=== PATIENT | female | born 1945 | race Caucasian/White ===

== ENCOUNTER → 2017-09-10 | Outpatient (CLI) | payer MEDICARE, BC ==
[2017-09-10 12:05] LABS: HEMOGLOBIN 13.7 g/dl (12.0-15.5); MEAN CORPUSCULAR HEMOGLOBIN 29.5 pg (27.0-33.0); MEAN CORPUSCULAR HGB CONC 32.6 g/dl (32.0-36.5); MEAN CORPUSCULAR VOLUME 90.3 fl (80.0-96.0); PLATELET COUNT, AUTOMATED 227 10^3/uL (150-450); RED BLOOD COUNT 4.65 10^6/uL (4.00-5.40); RED CELL DISTRIBUTION WIDTH 14.1 % (11.5-14.5)
[2017-09-10 12:14] LABS: INR 0.96; PROTHROMBIN TIME 12.8 SECONDS (12.4-14.5)
[2017-09-10 12:15] LABS: APPEARANCE, URINE CLEAR (CLEAR); BACTERIA, URINE AUTO NEGATIVE (NEGATIVE); BILIRUBIN, URINE AUTO NEGATIVE (NEGATIVE); BLOOD, URINE BLOOD NEGATIVE (NEGATIVE); COLOR, URINE YELLOW (YELLOW); GLUCOSE, URINE (UA) AUTO NEGATIVE (NEGATIVE); KETONE, URINE AUTO NEGATIVE (NEGATIVE); LEUKOCYTE ESTERASE, URINE AUTO NEGATIVE (NEGATIVE); MUCUS, URINE SMALL (NEGATIVE); NITRITE, URINE AUTO NEGATIVE (NEGATIVE); PROTEIN, URINE AUTO NEGATIVE (NEGATIVE); RBC, URINE AUTO 2 /HPF (0-3); SPECIFIC GRAVITY URINE AUTO 1.017 (1.002-1.035); SQUAMOUS EPITHELIAL CELL UR AU 1 /HPF (0-6); UROBILINOGEN, URINE AUTO 0.2 mg/dL (0.0-2.0); WBC, URINE AUTO 2 /HPF (0-3)
[2017-09-10 13:01] LABS: ALBUMIN 3.7 GM/DL (3.2-5.2); ALBUMIN/GLOBULIN RATIO 1.06 (1.00-1.93); ALKALINE PHOSPHATASE 72 U/L (45-117); ALT/SGPT 24 U/L (12-78); ANION GAP 4 MEQ/L (8-16); AST/SGOT 21 U/L (7-37); BILIRUBIN,TOTAL 1.4 MG/DL (0.2-1.0); BLOOD UREA NITROGEN 11 MG/DL (7-18); CARBON DIOXIDE LEVEL 31 MEQ/L (21-32); CHLORIDE LEVEL 108 MEQ/L (98-107); CREATININE FOR GFR 0.77 MG/DL (0.55-1.30); GLOMERULAR FILTRATION RATE > 60.0 (>39); GLUCOSE, FASTING 95 MG/DL (70-100); POTASSIUM SERUM 4.8 MEQ/L (3.5-5.1); SODIUM LEVEL 143 MEQ/L (136-145); TOTAL PROTEIN 7.2 GM/DL (6.4-8.2)
[2017-09-10 13:58] LABS: ERYTHROCYTE SEDIMENTATION RATE 12 mm/hr (0-30)
== END ==
LOC: M ADMPAT 10:15
DX: Z01.818 Encounter for other preprocedural examination (principal); M17.12 Unilateral primary osteoarthritis, left knee
CPT/HCPCS: 71046

== ENCOUNTER 2017-09-26 09:26 | Inpatient (IN) | payer MEDICARE, BC ==
[2017-09-26] MEDS: LR 1,000 ML IV ×4 (09:45→16:49)
[2017-09-26] MEDS: ACETAMINOPHEN 500 MG TAB PO (10:00)
[2017-09-26] MEDS ORDERED: fentaNYL 100 MCG/2 ML INJECTION (J3010) As Ordered ×2 (10:13→10:34)
[2017-09-26] MEDS ORDERED: MIDAZOLAM INJ 2 MG/2 ML VIAL (J2250) As Ordered ×2 (10:13→10:34)
[2017-09-26] MEDS ORDERED: PROPOFOL 200 MG/20 ML VIAL As Ordered ×2 (10:35→10:36)
[2017-09-26] MEDS: fentaNYL 100 MCG/2 ML INJECTION (J3010) IV (10:51)
[2017-09-26] MEDS: MIDAZOLAM INJ 2 MG/2 ML VIAL (J2250) IV (10:51)
[2017-09-26] MEDS: ceFAZolin 1GM INJ (J0690 PER 500MG) As Ordered (11:53)
[2017-09-26] MEDS: BUPIVACAINE HCL 0.25% 10 ML VIAL As Ordered (12:29)
[2017-09-26] MEDS: TRANEXAMIC ACID 100 MG/ML 10ML VIAL As Ordered (12:31)
[2017-09-26] MEDS: EPINEPHrine INJ 1 MG/ML 1ML AMP As Ordered (12:33)
[2017-09-26] MEDS: BUPIVACAINE LIPOSOME/PF 1.3% 20 ML VIAL (13.3MG/ML)(EXPAREL) As Ordered (12:34)
[2017-09-26] MEDS ORDERED: NALOXONE INJ 0.4 MG/1 ML VIAL (J2310) IV (13:30)
[2017-09-26] MEDS ORDERED: EPIDURAL/PCA KEYS XX (13:30)
[2017-09-26] MEDS ORDERED: FLEET ENEMA PR (13:30)
[2017-09-26] MEDS ORDERED: ONDANSETRON 4MG/2ML VIAL (J2405) IV ×2 (13:30→13:45)
[2017-09-26] MEDS ORDERED: NALBUPHINE HCL 10 MG/ML AMP (J2300) IV (13:30)
[2017-09-26] MEDS ORDERED: MORPHINE 1MG/ML IN 0.9% NACL 100ML IV BAG IV (13:30)
[2017-09-26] MEDS ORDERED: MORPHINE 1MG/ML IN 0.9% NACL 100ML IV BAG As Ordered (13:31)
[2017-09-26] MEDS ORDERED: MORPHINE 10 MG/ML 1ML VIAL (J2270) IV (13:45)
[2017-09-26] MEDS ORDERED: fentaNYL 100 MCG/2 ML INJECTION (J3010) IV (13:45)
[2017-09-26] MEDS ORDERED: METOCLOPRAMIDE INJ 10MG/2ML VIAL (J2765) IV (13:45)
[2017-09-26] MEDS ORDERED: NORCO, ANEXSIA 5/325MG TABLET (HYDROcodone/ACETAMINOPHEN) PO (13:45)
[2017-09-26] MEDS ORDERED: ROPIvacaine 0.5% 30 ML INJECTION (J2795 PER 1MG) (13:47)
[2017-09-26] MEDS ORDERED: EPINEPHrine INJ 1 MG/ML 1ML AMP (13:47)
[2017-09-26] MEDS ORDERED: dexameTHASONE 10 MG/1 ML VIAL PRES.FREE (J1100) (13:47)
[2017-09-26] MEDS: WARFARIN SOD 5 MG TAB PO (16:48)
[2017-09-26] MEDS: VITAMIN D 1,000 INTERNATIONAL UNITS TABLET PO (16:48)
[2017-09-26] MEDS: OCUVITE 1 TAB PO (16:48)
[2017-09-26] MEDS: SENOKOT S TAB PO (20:56)
[2017-09-26] MEDS: PANTOPRAZOLE 40MG TAB (PROTONIX) PO (20:57)
[2017-09-26] MEDS: PROPRANOLOL 80 MG LA CAP PO (20:57)
[2017-09-26] MEDS: ESCITALOPRAM OXALATE 10 MG TAB (LEXAPRO) PO (20:57)
[2017-09-26] MEDS: CETIRIZINE (ZyrTEC) 10 MG TAB PO (20:57)
[2017-09-27] MEDS: LR 1,000 ML IV (00:30)
[2017-09-27] MEDS: diphenhydrAMINE INJ 50MG/ML VIAL (J1200) IV (03:18)
[2017-09-27 06:09] LABS: HEMATOCRIT 35.7 % (36.0-47.0); HEMOGLOBIN 11.8 g/dl (12.0-15.5); MEAN CORPUSCULAR HEMOGLOBIN 29.7 pg (27.0-33.0); MEAN CORPUSCULAR HGB CONC 33.1 g/dl (32.0-36.5); MEAN CORPUSCULAR VOLUME 89.9 fl (80.0-96.0); PLATELET COUNT, AUTOMATED 200 10^3/uL (150-450); RED BLOOD COUNT 3.97 10^6/uL (4.00-5.40); WHITE BLOOD COUNT 9.2 10^3/uL (4.0-10.0)
[2017-09-27 06:21] LABS: INR 1.06
[2017-09-27 06:28] LABS: ANION GAP 5 MEQ/L (8-16); BLOOD UREA NITROGEN 14 MG/DL (7-18); CALCIUM LEVEL 8.3 MG/DL (8.8-10.2); CARBON DIOXIDE LEVEL 30 MEQ/L (21-32); CHLORIDE LEVEL 105 MEQ/L (98-107); CREATININE FOR GFR 0.85 MG/DL (0.55-1.30); GLOMERULAR FILTRATION RATE > 60.0 (>39); GLUCOSE, FASTING 141 MG/DL (70-100); POTASSIUM SERUM 4.4 MEQ/L (3.5-5.1); SODIUM LEVEL 140 MEQ/L (136-145)
[2017-09-27] MEDS: MIRALAX *UNIT DOSE* 17GM PACKET PO (08:03)
[2017-09-27] MEDS: OCUVITE 1 TAB PO (08:03)
[2017-09-27] MEDS: MOM 30ML SUSPENSION UDC PO (08:03)
[2017-09-27] MEDS: VITAMIN D 1,000 INTERNATIONAL UNITS TABLET PO (08:03)
[2017-09-27] MEDS: SENOKOT S TAB PO ×2 (08:03→20:00)
[2017-09-27] MEDS: PERCOCET 5MG/325MG TAB PO ×4 (08:04→22:55)
[2017-09-27] MEDS: CALCIUM CARBONATE 500 MG CHEW U/D PO (09:20)
[2017-09-27] MEDS: WARFARIN SOD 5 MG TAB PO (17:58)
[2017-09-27] MEDS: diphenhydrAMINE 25 MG CAP PO (17:58)
[2017-09-27] MEDS: ESCITALOPRAM OXALATE 10 MG TAB (LEXAPRO) PO (20:00)
[2017-09-27] MEDS: CETIRIZINE (ZyrTEC) 10 MG TAB PO (20:00)
[2017-09-27] MEDS: PANTOPRAZOLE 40MG TAB (PROTONIX) PO (20:00)
[2017-09-27] MEDS: PROPRANOLOL 80 MG LA CAP PO (20:03)
[2017-09-28 06:12] LABS: HEMATOCRIT 33.4 % (36.0-47.0); HEMOGLOBIN 11.1 g/dl (12.0-15.5); MEAN CORPUSCULAR HEMOGLOBIN 29.4 pg (27.0-33.0); MEAN CORPUSCULAR HGB CONC 33.2 g/dl (32.0-36.5); MEAN CORPUSCULAR VOLUME 88.6 fl (80.0-96.0); PLATELET COUNT, AUTOMATED 184 10^3/uL (150-450); RED BLOOD COUNT 3.77 10^6/uL (4.00-5.40); RED CELL DISTRIBUTION WIDTH 14.5 % (11.5-14.5); WHITE BLOOD COUNT 8.8 10^3/uL (4.0-10.0)
[2017-09-28 06:23] LABS: INR 1.38; PROTHROMBIN TIME 17.3 SECONDS (12.4-14.5)
[2017-09-28] MEDS: PERCOCET 5MG/325MG TAB PO (06:29)
[2017-09-28 06:39] LABS: ANION GAP 5 MEQ/L (8-16); BLOOD UREA NITROGEN 18 MG/DL (7-18); CALCIUM LEVEL 8.1 MG/DL (8.8-10.2); CARBON DIOXIDE LEVEL 32 MEQ/L (21-32); CHLORIDE LEVEL 101 MEQ/L (98-107); CREATININE FOR GFR 0.81 MG/DL (0.55-1.30); GLOMERULAR FILTRATION RATE > 60.0 (>39); GLUCOSE, FASTING 115 MG/DL (70-100); MAGNESIUM LEVEL 2.4 MG/DL (1.8-2.4); POTASSIUM SERUM 4.2 MEQ/L (3.5-5.1); SODIUM LEVEL 138 MEQ/L (136-145)
[2017-09-28] MEDS: MOM 30ML SUSPENSION UDC PO (10:07)
[2017-09-28] MEDS: MIRALAX *UNIT DOSE* 17GM PACKET PO (10:08)
[2017-09-28] MEDS: VITAMIN D 1,000 INTERNATIONAL UNITS TABLET PO (10:08)
[2017-09-28] MEDS: OCUVITE 1 TAB PO (10:08)
[2017-09-28] MEDS: SENOKOT S TAB PO ×2 (10:08→20:33)
[2017-09-28] MEDS: MORPHINE 15 MG SA TAB PO ×2 (10:15→20:32)
[2017-09-28] MEDS: WARFARIN SOD 7.5 MG TAB PO (17:10)
[2017-09-28] MEDS: ONDANSETRON 4 MG TAB (S0181) PO (18:47)
[2017-09-28] MEDS: PROPRANOLOL 80 MG LA CAP PO (20:32)
[2017-09-28] MEDS: ESCITALOPRAM OXALATE 10 MG TAB (LEXAPRO) PO (20:32)
[2017-09-28] MEDS: CETIRIZINE (ZyrTEC) 10 MG TAB PO (20:32)
[2017-09-28] MEDS: PANTOPRAZOLE 40MG TAB (PROTONIX) PO (20:32)
[2017-09-29] MEDS: ACETAMINOPHEN TAB 650MG DOSE (2X325MG) PO ×2 (00:16→15:42)
[2017-09-29 05:36] LABS: HEMOGLOBIN 10.6 g/dl (12.0-15.5); MEAN CORPUSCULAR HEMOGLOBIN 29.9 pg (27.0-33.0); MEAN CORPUSCULAR HGB CONC 33.1 g/dl (32.0-36.5); MEAN CORPUSCULAR VOLUME 90.1 fl (80.0-96.0); PLATELET COUNT, AUTOMATED 168 10^3/uL (150-450); RED BLOOD COUNT 3.55 10^6/uL (4.00-5.40); RED CELL DISTRIBUTION WIDTH 14.6 % (11.5-14.5); WHITE BLOOD COUNT 6.3 10^3/uL (4.0-10.0)
[2017-09-29 05:46] LABS: INR 1.56; PROTHROMBIN TIME 19.1 SECONDS (12.4-14.5)
[2017-09-29 05:56] LABS: ANION GAP 4 MEQ/L (8-16); BLOOD UREA NITROGEN 13 MG/DL (7-18); CARBON DIOXIDE LEVEL 32 MEQ/L (21-32); CHLORIDE LEVEL 103 MEQ/L (98-107); CREATININE FOR GFR 0.75 MG/DL (0.55-1.30); GLOMERULAR FILTRATION RATE > 60.0 (>39); GLUCOSE, FASTING 96 MG/DL (70-100); MAGNESIUM LEVEL 2.5 MG/DL (1.8-2.4); POTASSIUM SERUM 4.2 MEQ/L (3.5-5.1); SODIUM LEVEL 139 MEQ/L (136-145)
[2017-09-29] MEDS: SENOKOT S TAB PO ×2 (08:23→21:08)
[2017-09-29] MEDS: MORPHINE 15 MG SA TAB PO ×2 (08:24→21:09)
[2017-09-29] MEDS: VITAMIN D 1,000 INTERNATIONAL UNITS TABLET PO (08:25)
[2017-09-29] MEDS: MOM 30ML SUSPENSION UDC PO (08:25)
[2017-09-29] MEDS: MIRALAX *UNIT DOSE* 17GM PACKET PO (08:25)
[2017-09-29] MEDS: OCUVITE 1 TAB PO (08:28)
[2017-09-29] MEDS: WARFARIN SOD 3 MG TAB PO (15:43)
[2017-09-29] MEDS: PANTOPRAZOLE 40MG TAB (PROTONIX) PO (21:07)
[2017-09-29] MEDS: ESCITALOPRAM OXALATE 10 MG TAB (LEXAPRO) PO (21:08)
[2017-09-29] MEDS: PROPRANOLOL 80 MG LA CAP PO (21:08)
[2017-09-29] MEDS: CETIRIZINE (ZyrTEC) 10 MG TAB PO (21:09)
[2017-09-30 06:15] LABS: HEMATOCRIT 31.5 % (36.0-47.0); HEMOGLOBIN 10.5 g/dl (12.0-15.5); MEAN CORPUSCULAR HEMOGLOBIN 29.9 pg (27.0-33.0); MEAN CORPUSCULAR HGB CONC 33.3 g/dl (32.0-36.5); MEAN CORPUSCULAR VOLUME 89.7 fl (80.0-96.0); PLATELET COUNT, AUTOMATED 198 10^3/uL (150-450); RED BLOOD COUNT 3.51 10^6/uL (4.00-5.40); RED CELL DISTRIBUTION WIDTH 14.6 % (11.5-14.5)
[2017-09-30 06:24] LABS: INR 1.67; PROTHROMBIN TIME 20.2 SECONDS (12.4-14.5)
[2017-09-30 06:30] LABS: ANION GAP 5 MEQ/L (8-16); BLOOD UREA NITROGEN 14 MG/DL (7-18); CALCIUM LEVEL 7.8 MG/DL (8.8-10.2); CARBON DIOXIDE LEVEL 30 MEQ/L (21-32); CHLORIDE LEVEL 104 MEQ/L (98-107); CREATININE FOR GFR 0.72 MG/DL (0.55-1.30); GLOMERULAR FILTRATION RATE > 60.0 (>39); GLUCOSE, FASTING 104 MG/DL (70-100); MAGNESIUM LEVEL 2.5 MG/DL (1.8-2.4); POTASSIUM SERUM 4.3 MEQ/L (3.5-5.1); SODIUM LEVEL 139 MEQ/L (136-145)
[2017-09-30] MEDS: OCUVITE 1 TAB PO (07:45)
[2017-09-30] MEDS: VITAMIN D 1,000 INTERNATIONAL UNITS TABLET PO (07:46)
[2017-09-30] MEDS: MORPHINE 15 MG SA TAB PO (07:46)
[2017-09-30] MEDS: MOM 30ML SUSPENSION UDC PO (07:47)
[2017-09-30] MEDS: MIRALAX *UNIT DOSE* 17GM PACKET PO (07:47)
[2017-09-30] MEDS: SENOKOT S TAB PO (07:47)
== END 2017-09-30 11:30 | DRG 470 ==
LOC: M OR 09:26 → M MS5PR 15:09
PROC: 0SRD0J9 Replacement of Left Knee Joint with Synthetic Substitute, Cemented, Open Approach (ICD-10-PCS; principal; 2017-09-26 11:12)
DX: M17.12 Unilateral primary osteoarthritis, left knee (principal); I10 Essential (primary) hypertension; E78.5 Hyperlipidemia, unspecified; G25.0 Essential tremor; K21.9 Gastro-esophageal reflux disease without esophagitis; J30.9 Allergic rhinitis, unspecified; Z88.5 Allergy status to narcotic agent; Z79.899 Other long term (current) drug therapy; Z88.8 Allergy status to other drugs, medicaments and biological substances; Z96.651 Presence of right artificial knee joint

== ENCOUNTER → 2020-12-08 | Outpatient (CLI) | payer MEDICARE, BC ==
[~2020-12-08] MED LIST: ADVIL PO; ASPI81CH12 PO; BIOT1CAP2 PO; BIOTPOW20 PO; CENT1TAB PO; CENT1TAB19 PO; CENTRUM SILVER PO; CETI10CA2 PO; COLE625TAB PO; COUM1TAB18 PO; D31000TA PO; INDE80CA10 PO; LACTOBACILLUS ACIDOPHILUS PO; LEXA1TAB PO; MULTLIQ7 PO; OXYC30TA4 PO; PANT40TA29 PO; PERC5TAB12 PO; PERC7.5T12 PO; PROP120C PO; RED YEAST PO; SUPE5000 PO; TUMS500C PO; TYLE325T5 PO; VITA200038 PO; VITAMIN D 3 PO; ZYRT10CA PO; ZYRTEC PO; [UNRECOGNIZED DRUG - MIXTURE] PO; [UNRECOGNIZED DRUG - OTHER] PO
== END ==
LOC: M LABSMTC 10:29
PROVIDERS: ATTEND Anesthesiology
DX: Z01.818 Encounter for other preprocedural examination (principal); Z11.52 Encounter for screening for COVID-19

== ENCOUNTER 2020-12-13 13:36 | Day surgery (SDC) | payer MEDICARE, BC ==
[~2020-12-13] VITALS: Ht 162.6 cm; Wt 75.8 kg
[~2020-12-13 13:36] MED LIST changes: +LR 1,000 ML IV ONE; +ceFAZolin SOD 1 GM in D5W MINI-BAG PLUS 50 ML IV ONE
[2020-12-13] MEDS ORDERED: LIDOCAINE 2% 100MG/5ML SDV (FOR ANES.) As Ordered ONE (14:18)
[2020-12-13] MEDS ORDERED: propofoL 200 MG/20 ML VIAL As Ordered ONE ×2 (14:18→14:20)
[2020-12-13] MEDS ORDERED: LIDOCAINE 1% MDV 20ML VIAL As Ordered ONE (14:24)
[2020-12-13] MEDS ORDERED: MIDAZOLAM INJ 2MG/2ML VIAL (J2250 PER 1MG) As Ordered ONE (14:31)
[2020-12-13] MEDS ORDERED: fentaNYL 100 MCG/2 ML INJECTION (J3010) As Ordered ONE (14:32)
[2020-12-13] MEDS ORDERED: ONDANSETRON 4MG/2ML VIAL As Ordered ONE ×2 (15:06→16:19)
[2020-12-13 16:00] VITALS: BP 122/78
--- NOTE | 2020-12-13 18:48 | RO ---
OPERATIVE NOTE DATE OF OPERATION: 12/13/2020 PREOPERATIVE DIAGNOSIS: Unexplained syncope. PREOPERATIVE DIAGNOSIS: Unexplained syncope. FINDINGS: Unexplained syncope. PROCEDURE PERFORMED: Implantation of a Medtronic LINQ II subcutaneous cardiac rhythm monitor. SURGEON: Dariusz Serra M.D. WILDLIFE ENFORCEMENT MAJOR: None. ANESTHESIA: Lidocaine 1% local/monitored anesthetic care. SPECIMENS: None. ESTIMATED BLOOD LOSS: Less than 3 mL. BLOOD PRODUCTS: No blood products were placed. DRAINS: None. COMPLICATIONS: None. PROCEDURE DESCRIPTION: The patient was prepped and draped over the sternum and left anterior chest. Lidocaine 1% was used for local anesthetic. An incision was made approximately 1 cm in length with a #15 blade through the skin at the left fourth interspace about 1 inch lateral to the left parasternal border. The guide on the insertion tool was placed into the incision and advanced in the subcutaneous tissue parallel to the anterior chest wall in a 45 degrees left lateral-caudal direction. The insertion tool was rotated 180 degrees. The punch was then placed into the insertion tool and used to advance the cardiac rhythm monitor into the subcutaneous tissue. The punch tool was removed and then the insertion tool was removed leaving the implantable loop recorder in the subcutaneous tissue. A single 2-0 Vicryl stitch was used to approximate the deeper layer. The skin was then approximated temporarily using a 4-0 Biosyn suture placed subcuticular with the free ends protruding 1 cm from the skin on either end of the incision. Three layers of Dermabond were applied while the incision was kept tied together by placing some tension on the Biosyn suture. The Biosyn suture was then pulled through the incision and removed entirely. The patient tolerated the procedure well without any immediate complications. The cardiac rhythm monitor implanted was a Medtronic model LNQII with serial number [id number]. The initial R-wave amplitude was 0.45 millivolts.
== END 2020-12-13 16:00 | disposition home or self-care (01) ==
LOC: M SDC 13:36
PROVIDERS: ATTEND Internal Medicine Cardiovascular Disease
DX: R55 Syncope and collapse (principal); R53.1 Weakness; R94.31 Abnormal electrocardiogram [ECG] [EKG]; E78.2 Mixed hyperlipidemia; G25.0 Essential tremor; K44.9 Diaphragmatic hernia without obstruction or gangrene; K21.9 Gastro-esophageal reflux disease without esophagitis; R32 Unspecified urinary incontinence; Z79.899 Other long term (current) drug therapy; Z88.4 Allergy status to anesthetic agent; Z88.8 Allergy status to other drugs, medicaments and biological substances
CPT/HCPCS: 33285; C1764; J0690; J2250; J2405; J3010

== ENCOUNTER → 2021-01-03 | Outpatient (CLI) | payer MEDICARE, BC ==
[~2021-01-03] MED LIST changes: +E-Z-GAS II EFFERVESCENT PACKET (SODIUM BICARB./CITRIC ACID/SIMETHICONE) As Ordered ONE; +E-Z-HD 98% w/w 340GM SUSP BTL As Ordered ONE; +E-Z-PAQUE 96% w/w SUSP 176GM BTL As Ordered ONE; -LR 1,000 ML IV ONE; -ceFAZolin SOD 1 GM in D5W MINI-BAG PLUS 50 ML IV ONE
--- NOTE | 2021-01-03 17:58 | REP ---
INDICATION: DYSPEPSIA. COMPARISON: None TECHNIQUE: This procedure was performed by Basilia Santos [facility], under the direct supervision of Dr. Gongora. Images were reviewed with Dr. Gongora prior to dictation. Liquid barium and gas producing crystals were given in the erect position, as well as liquid barium in the prone oblique position in order to perform a double contrast upper GI examination. FINDINGS: The nitric acid concentrator operator film shows no organomegaly or pathological masses. The intestinal gas pattern is unremarkable. There are surgical clips in the pelvis and in the right upper quadrant. There is degenerative disc disease of the cervical spine specifically C5-6. The oral and pharyngeal stages of deglutition were unremarkable. Esophageal transport is prompt and efficient and there is no evidence of esophagitis, stricture, or mucosal ring. There is evidence of a small hiatal hernia. Gastroesophageal reflux was visualized to the thoracic inlet. The stomach brooks are normally outlined. Multiple smoothly marginated polyps are visualized in the stomach ranging in sizes from 4-8 mm. An upper endoscopy is recommended for further evaluation. The duodenal brooks are normally outlined. The mucosal folds are smooth and regular. There is no duodenitis, peptic ulcer disease or neoplasm. The visualized portion of the proximal small bowel appears normal in course and caliber. IMPRESSION: 1. Multiple smoothly marginated polyps are visualized in the stomach ranging from 4-8 mm, and upper endoscopy is recommended for further evaluation. 2. Small hiatal hernia. 3. Gastroesophageal reflux to the thoracic inlet. 0.4 minutes of fluoroscopy time was utilized for this procedure. Some fluoroscopic images are performed with last image hold technology. These images require no additional radiation. <Electronically signed by Basilia Santos > 01/03/21 1702 <Electronically signed by Joe Gongora > 01/03/21 0211
== END ==
LOC: M RAD 08:01
PROVIDERS: ATTEND Internal Medicine
DX: K30 Functional dyspepsia (principal); K21.9 Gastro-esophageal reflux disease without esophagitis; K44.9 Diaphragmatic hernia without obstruction or gangrene; K31.7 Polyp of stomach and duodenum

== ENCOUNTER → 2021-03-17 | Outpatient (CLI) | payer MEDICARE, BC ==
[~2021-03-17] MED LIST changes: -E-Z-GAS II EFFERVESCENT PACKET (SODIUM BICARB./CITRIC ACID/SIMETHICONE) As Ordered ONE; -E-Z-HD 98% w/w 340GM SUSP BTL As Ordered ONE; -E-Z-PAQUE 96% w/w SUSP 176GM BTL As Ordered ONE; +GAVICHW PO; +TURM1TAB PO
== END ==
LOC: M LABSMTC 10:24
PROVIDERS: ATTEND Anesthesiology
DX: Z01.812 Encounter for preprocedural laboratory examination (principal); Z20.822 Contact with and (suspected) exposure to COVID-19

== ENCOUNTER 2021-03-22 09:19 | Day surgery (SDC) | payer MEDICARE, BC ==
[~2021-03-22] VITALS: Ht 162.6 cm; Wt 74.8 kg
[~2021-03-22 09:19] MED LIST changes: +NS 1,000 ML IV ONE
--- OUTSIDE RECORDS SUMMARY | 2021-03-22 09:26 | CCD | Continuity of Care Document ---
Author Author Radha TYSON MD Organization Unknown Address [address] [place] [address], [address] [place] [address] Phone [phone] Care Team Providers Care Data Typist Name Role Phone Melanie Bradley MD [facility] [phone] Debra Adams AUTM [phone] Problems Description No Information Available Social History Type Date Description Comments Sex Unknown ETOH Use Denies alcohol use Tobacco Use Start: Unknown Patient has never smoked Allergies, Adverse Reactions, Alerts Active Allergies Criticality Reaction | Severity Comments Date W/ Epi Unable to assess criticality 07/22/2017 Medications Active Medications SIG Qnty Indications Ordering Provide r Date Pantoprazole Sodium Tablets DR Unknown Multivitamin Adult Tablets 1 by mouth every day Unknown Vitamin D3 2000Unit Capsules 1 po daily Unknown Tremor Medication Unknown /0 000 Immunizations Description No Information Available Vital Signs Date Vital Result Comment 11/09/2019 10:51am Body Temperature 97.2 F Height 162 inches 13'6" Weight 64.00 lb BMI (Body Mass Index) 1.7 kg/m2 06/06/2018 1:01pm Body Temperature 98.5 F Height 63.75 inches 5'3.75" Weight 173.25 lb BMI (Body Mass Index) 30.0 kg/m2 Results Description No Information Available Procedures Date Code Description Status 01/25/2021 06557 X-Ray Knee Ap & Lateral W/Obliqu es Three Views Completed 01/25/2021 74420 X-Ray Knee Ap & Lateral W/Obliqu es Three Views Completed 01/25/2021 50485 X-Ray Finger(S) Two Views Comple flory Medical Devices Description No Information Available Encounters Description No Information Available Assessments Date Code Description Provider 01/25/2021 Z47.1 Aftercare following joint replac ement surgery Katharine Tyson MD 01/25/2021 Z96.653 Presence of artificial knee join t, bilateral Katharine Tyson MD 01/25/2021 R22.31 Localized swelling, mass and lum p, right upper limb Katharine Tyson MD Plan of Treatment 01/25/2021 - Katharine Tyson MD* Z47.1 Aftercare following joint replacement surgery * Z96.653 Presence of artificial knee joint, bilateral * R22.31 Localized swelling, mass and lump, right upper limb* Follow up:* 2 years yeison knee xray with dpv Functional Status Description No Information Available Mental Status Description No Information Available Referrals Description No Information Available
--- OUTSIDE RECORDS SUMMARY | 2021-03-22 09:26 | CCD | Continuity of Care Document ---
Author Author Radha MCGRAW M.D. Organization Unknown Address [address] [place] [address] Phone [phone] Care Team Providers Care Framing Consultant Name Role Phone Melanie Bradley M.D. [facility] [phone] Problems Active Problems Provider Date Gastroesophageal reflux disease Elis Strickland Ons et: 01/03/2012 Social History Type Date Description Comments Sex Unknown ETOH Use Never used alcohol Tobacco Use Start: Unknown Patient has never smoked Allergies, Adverse Reactions, Alerts Active Allergies Criticality Reaction | Severity Comments Date Statins Unable to assess criticality Muscle pain 01/03/2012 Medications Active Medications SIG Qnty Indications Ordering Provide r Date Sutab [id number] Tablets as directed 1box Seth Mcgraw M.D. 01/24/2021 Gaviscon Extra Strength 160-105mg Chewtabs 1 tab by mouth four times a day before meals,and at bedtime 360u nits Seth Mcgraw M.D. 01/24/2021 Pantoprazole Sodium 40mg Tablets D R 1 tab by mouth every night 90tabs Seth Mcgraw M.D. Colesevelam HCL 625mg Tablets Take 1To 2 Tablets By Mouth Once Daily With Food Unknown Propranolol HCL ER 120mg Caps ER 2 4HR Take One Capsule By Mouth AT Bedtime Unknown Zyrtec Allergy 10mg Tablets 1 by mouth every day Unknown Centrum Silver 50+Women 50+Women T ablets Unknown Biotin Maximum 82220fys Tablets Dispers Unknown Preservision Areds Capsules Unknown Turmeric Curcumin 500mg Capsules Unknown Immunizations Description No Information Available Vital Signs Date Vital Result Comment 01/24/2021 10:41am Height 64 inches 5'4" Weight 170.00 lb BP Systolic 122 mmHg BP Diastolic 82 mmHg Heart Rate 72 /min BMI (Body Mass Index) 29.2 kg/m2 Weight 77.112 kg Body Temperature 97.7 F 02/28/2012 3:03pm Height 64 inches 5'4" Weight 155.00 lb BP Systolic 135 mmHg BP Diastolic 88 mmHg Heart Rate 71 /min BMI (Body Mass Index) 26.6 kg/m2 Weight 70.308 kg Results Description No Information Available Procedures Date Code Description Status 01/24/2021 19855 Office/Outpatient New Moderate M DM 45-59 Minutes Completed Medical Devices Description No Information Available Encounters Type Date Location Provider Dx Diagnosis Office Visit 01/24/2021 10:00a Main Office Seth Mcgraw M.D. Z 12.11 Encounter for screening for malignant neoplasm of colon K21.9 Gastro-esophageal reflux dis ease without esophagitis Assessments Date Code Description Provider 01/24/2021 Z12.11 Screening for malignant neoplasm of colon Seth Mcgraw M.D. 01/24/2021 K21.9 Gastroesophageal reflux disease Seth Mcgraw M.D. Plan of Treatment Future Appointment(s):* 03/08/2021 8:00 am - [facility] at Main Office * 03/22/2021 8:45 am - Seth Mcgraw M.D. at Main Office 01/24/2021 - Seth Mcgraw M.D.* Z12.11 Screening for malignant neoplasm of colon* Comments:* 75 yo wf who presents for an egd/colonoscopy for a h/o heartburn/nausea/screening. No c/o abdominal pain, weight loss, change in bowel habits, or rectal bleeding. No family h/o colon cancer. No c/o chest pain, or sob. Plan:1.Schedule patient for a colonoscopy + egd.2.Informed consent given to the patient.3.Pt. advised to stop aspirin,plavix, and anticoagulants at least 3 to 7 days prior to the procedure. * K21.9 Gastroesophageal reflux disease* Comments:* As above. Functional Status Description No Information Available Mental Status Description No Information Available Referrals Description No Information Available
--- OUTSIDE RECORDS SUMMARY | 2021-03-22 09:26 | CCD ---
Continuity of Care Document (CCD) Created on: 01/11/2021 Radha Smith External Reference #: [id number] : [id number] Sex: Female Author Author Radha CROWDER Organization Unknown Address [address] [place] [address], [facility] [place] [address] Phone [phone] Care Team Providers Care Dye House Worker Name Role Phone Melanie Bradley MD [facility] [phone] Problems Active Problems Provider Date Benign essential hypertension Onset: Syncope and collapse Dariusz Serra MD Onset: 10/26/2020 Electrocardiogram abnormal Dariusz Serra MD Onset: 10/26 Social History Type Date Description Comments Sex Unknown ETOH Use Does not consume alcohol Tobacco Use Start: Unknown Patient has never smoked Smoking Status Reviewed: 12/19/20 Patient has never smoked Exercise Type/Frequency Physical Therapy at home on bilateral knees Exercise Limitations None Allergies, Adverse Reactions, Alerts Active Allergies Criticality Reaction | Severity Comments Date NKDA Unable to assess criticality 10/26/2020 Statins Unable to assess criticality Myalgia 10/26/2020 Medications Active Medications SIG Qnty Indications Ordering Provide r Date Biotin 5000 5mg Capsules 1 by mouth every day Unknown 10/25/2020 Colesevelam HCL 625mg Tablets take one to two tablets by mouth every day with food 60tabs Melanie Isaac MD 06/29/2019 Propranolol HCL ER 120mg Caps ER 2 4HR take one capsule by mouth at bedtime 90caps Melanie Bradley MD 02/06/2018 Vitamin D3 25mcg (1000 Ut) Tablets 2 po qd Melanie Bradley MD 10/29/2012 Centrum Silver Tablets 1 po q.d. Melanie Bradley MD 10/28/2012 Pantoprazole Sodium 40mg Tablets D R take one tablet by mouth every day 90tabs Melanie Bradley M D 10/28/2012 Tums 500mg Chewtabs 1 - 2 po prn abd pain Melanie Bradley MD 06/14/2011 Zyrtec Allergy 10mg Tablets 1 by mouth every day prn 30tabs Melanie Bradley MD 06/12/2010 Immunizations Description No Information Available Vital Signs Date Vital Result Comment 10/26/2020 2:26pm Weight 169.00 lb Home Weight 166lb home weight Height 64 inches 5'4" BMI (Body Mass Index) 29.0 kg/m2 Heart Rate 68 /min BP Systolic Sitting 142 mmHg Omron, large cuff/Ra ; HR: 68 bpm BP Diastolic Sitting 97 mmHg Omron, large cuff/R a; HR: 68 bpm BP Systolic Lying Down 134 mmHg Omron, large cuff /Ra; HR: 64 bpm BP Diastolic Lying Down 85 mmHg Omron, large cuf f/Ra; HR: 64 bpm BP Systolic Standing 158 mmHg Omron, large cuff/R a; HR: 67 bpm BP Diastolic Standing 97 mmHg Omron, large cuff/ Ra; HR: 67 bpm Results Test Acquired Date Facility Test Result H/L Range Note Basic Metabolic Panel 09/13/2020 [facility] Glucose 109 Blood Urea Nitrogen 18 Creatinine 0.87 Sodium 143 Potassium 5.0 Chloride 105 Carbon Dioxide 30 Calcium 9.5 GFR (Calculated) 64 Lipid Profile/Cardiac Risk Pro 09/13/2020 [facility] Triglycerides 188 Cholesterol 254 HDL 68 LDL Cholesterol 148 Chol/HDL Ratio 3.7 Laboratory test finding 09/13/2020 [facility] C-Reactive Protein 4.1 Procedures Date Code Description Status 12/19/2020 75129 Office/Outpatient Established Mi nimal Problem(S) Completed 10/26/2020 24453 Office/Outpatient New Moderate M DM 45-59 Minutes Completed 10/26/2020 64614 ECG 12-Lead Completed Medical Devices Description No Information Available Encounters Type Date Location Provider Dx Diagnosis Office Visit 12/19/2020 11:00a Main Office Shlely Mcknight PA-C R55 Syncope and collapse Office Visit 10/26/2020 3:00p Main Office Dariusz Serra MD R55 Syncope and collapse R94.31 Abnormal electrocardiogram [ ECG] [EKG] Assessments Date Code Description Provider 12/19/2020 R55 Syncope and collapse Shelly bourne PA-C 10/26/2020 R55 Syncope and collapse Dariusz kwan MD 10/26/2020 R94.31 Abnormal electrocardiogram [ECG] [EKG] Dariusz Serra MD Plan of Treatment Future Appointment(s):* 01/18/2021 7:00 am - [facility] at Main Office * 12/19/2021 10:45 am - Shelly Mcknight PA-C at Main Office 12/19/2020 - Shelly Mcknight PA-C* R55 Syncope and collapse * All * Follow up:* 12 month follow up. Functional Status Functional Condition Comment Date Status Independent with all ADL's Activ e Mental Status Description No Information Available Referrals Description No Information Available
--- OUTSIDE RECORDS SUMMARY | 2021-03-22 09:26 | CCD | Continuity of Care Document ---
Author Author Radha CROWDER Organization Unknown Address [address] [place] [address], [facility] [place] [address] Phone [phone] Care Team Providers Care Counterintelligence Analyst Name Role Phone Melanie Bradley MD [facility] [phone] Problems Active Problems Provider Date Benign essential [...] Protein 4.1 Procedures Date Code Description Status 01/11/2021 73882 Echocardiogram 2-D Doppler Color Completed 12/19/2020 40684 Office/Outpatient Established Mi nimal Problem(S) Completed 10/26/2020 59778 Office/Outpatient New Moderate M DM 45-59 Minutes Completed 10/26/2020 49677 ECG 12-Lead Completed Medical Devices Description No Information Available Encounters Type Date Location Provider Dx Diagnosis Office Visit 12/19/2020 11:00a Main Office Shelly Mcknight PA-C R55 Syncope and collapse Office Visit 10/26/2020 3:00p Main Office Dariusz Serra MD R55 Syncope and collapse R94.31 Abnormal electrocardiogram [ ECG] [EKG] Assessments Date Code Description Provider 01/11/2021 R55 Syncope and collapse ECHO 01/11/2021 R94.31 Abnormal electrocardiogram [ECG] [EKG] ECHO 12/19/2020 R55 Syncope and collapse Shelly bourne [...]
--- OUTSIDE RECORDS SUMMARY | 2021-03-22 09:26 | CCD | Continuity of Care Document ---
Author Author Radha AMOR F.N.P. Organization Unknown Address [address], [address] [place] [address] Phone [phone] Care Team Providers Care Bilingual Interpreter Name Role Phone Melanie Bradley MD [facility] [phone] Problems Description No Information Available Social History Type Date Description Comments Sex Unknown Tobacco Use Start: Unknown Never Smoked Cigarettes ETOH Use Denies alcohol use Sun Exposure minimum amount of sun exposure Sun Exposure Has never experienced blistering from sunburns Sun Exposure Does not use sunscreen Sun Exposure Tanning bed - Has used in past. No longer using. Allergies, Adverse Reactions, Alerts Active Allergies Reaction Severity Comments Date Novocain Headaches and dizziness 02/25 Medications Active Medications SIG Qnty Indications Ordering Provide r Date Propranolol HCL 10mg Tablets Debra Amor, F.N.P. 01/28/2018 Pantoprazole Sodium 40mg Tablets D R 1 by mouth every day Unknown Centrum Silver Ultra Womens Table ts 1 tab by mouth every day Unknown Biotin 1mg Capsules 1 tab by mouth every day Unknown Immunizations Description No Information Available Vital Signs Date Vital Result Comment 12/21/2020 1:09pm BP Systolic 122 mmHg BP Diastolic 76 mmHg Respiratory Rate 16 /min Heart Rate 64 /min 12/21/2020 1:08pm BP Systolic 122 mmHg BP Diastolic 76 mmHg Results Description No Information Available Procedures Date Code Description Status 12/21/2020 73134 Office/Outpatient Established Mo d MDM 30-39 Min Completed Medical Devices Description No Information Available Encounters Type Date Location Provider Dx Diagnosis Office Visit 12/21/2020 1:00p Main Office Debra Amor F.N.P. L72.3 Sebaceous cyst R20.8 Other disturbances of skin s ensation Assessments Date Code Description Provider 12/21/2020 L72.3 Sebaceous cyst [address], [facility] 12/21/2020 L72.3 Sebaceous cyst Debra ricardo, F.N.P. 12/21/2020 R20.8 Other disturbances of skin sensa tion Rhea Cool, [facility] 12/21/2020 R20.8 Other disturbances of skin sensa tion Debra Amor, F.N.P. Plan of Treatment Future Appointment(s):* 03/20/2021 10:45 am - Debra Amor, F.N.P. at Main Office 12/21/2020 - Debra Amor, F.N.P.* L72.3 Sebaceous cyst* Comments:* Discussed diagnosis.Will send a referral to Dr. Yanez for further evaluation and possible treatment.Radha will be called with date and time of appointment. * R20.8 Other disturbances of skin sensation* Comments:* See above. * Follow up:* Functional Status Description No Information Available Mental Status Description No Information Available Referrals Description No Information Available
--- OUTSIDE RECORDS SUMMARY | 2021-03-22 09:26 | CCD | Continuity of Care Document ---
Author Author Radha Bradley M.D. Organization Unknown Address [address] [place] [address] Phone [phone] Care Team Providers Care Speech Therapy Director Name Role Phone Melanie Bradley MD AUTM [phone] Aguilar Anguiano O.D. AUTM [phone] Dariusz Ybarra MD AUTM [phone] Problems Active Problems Provider Date Benign essential hypertension Melanie Bradley M.D. Onset: 06/10/2011 Pure hypercholesterolemia Melanie Bradley M.D. Onset: Gastroesophageal reflux disease Melanie Bradley M.D. Onse t: 06/10/2011 Osteoarthritis Melanie Bradley M.D. Onset: 2 Total replacement of left knee joint Melanie Bradley M.D. Onset: 11/14/2017 Total replacement of right knee joint Mimi Owen Onset: 11/14/2017 Social History Type Date Description Comments Sex Unknown ETOH Use Never used alcohol Tobacco Use Start: Unknown Patient has never smoked Allergies and adverse reactions Active Allergies Criticality Reaction | Severity Comments Date Statins Unable to assess criticality Severe Myalg ias 06/12/2010 Novocain Unable to assess criticality FACE RED DIZZY NAUSEA HEA DACHE 10/28/2012 Inactive Allergies NKDA Unable to assess criticality 05/31/2008 Medications Active Medications SIG Qnty Indications Ordering Provide r Date Propranolol HCL ER 120mg Caps ER 2 4HR take one capsule by mouth at bedtime 90caps Melanie zimmer M.D. 02/06/2018 Shingrix 50mcg Suspension Rec administer 0.5 milliliters intramuscular, repeat in 2 to 6 months 2units Melanie Bradley M.D. 02/06/2018 Biotin Capsules every day Melanie Bradley M.D. 04/05/2014 Vitamin D-3 1000Unit Tablets 2 po qd Melanie Bradley M.D. 10/29/2012 Centrum Silver Tablets 1 po q.d. Melanie Bradley M.D. 10/28/2012 Pantoprazole Sodium 40mg Tablets D R take one tablet by mouth every day 90tabs Melanie Bradley M.D. 10/28/2012 Tums 500mg Chewtabs 1 - 2 po prn abd pain Melanie Bradley M.D. 06/14/2011 Zyrtec Allergy 10mg Tablets 1 by mouth every day prn 30tabs Melanie Bradley M.D. 06/12/19 11 Ocuvite Adult 50+ Capsules 1 by mouth every day Unknown Medications Administered in Office Medication SIG Qnty Indications Ordering Provider Date Covid-19 vaccine, Unspecified Inj ection Unknown 07/20/2020 Covid-19 vaccine, Unspecified Inj ection Unknown 06/22/2020 Administration Of Flu Vaccine Inj ection Melanie Bradley M.D. 03/27/20 17 Immunizations CPT Code Status Date Vaccine Lot # U-Flu Given 02/25/2020 Influenza,Unspecified U-Flu Given 03/04/2019 Influenza,Unspecified [id number] Given 03/27/2017 Influenza Vaccin e Quadrivalent Preser/Antibiotic Free Im Use [id number] Given 06/14/2011 Pneumovax 23 [id number] Given 01/01/2007 Tetanus/Diptheria(Td)Toxoids Preservative Free Vital Signs Date Vital Result Comment 12/05/2020 11:36am BP Systolic 122 mmHg BP Diastolic 70 mmHg Heart Rate 74 /min Height 63.25 inches 5'3.25" Weight 168.00 lb BMI (Body Mass Index) 29.5 kg/m2 09/27/2020 9:37am BP Systolic 136 mmHg RT Arm BP Diastolic 86 mmHg RT Arm Heart Rate 76 /min Height 63.25 inches 5'3.25" Weight 169.00 lb BMI (Body Mass Index) 29.7 kg/m2 Results Test Acquired Date Facility Test Result H/L Range Note Coronavirus 2019 Nasopharygeal 03/17/2021 [facility] [address] [place], [place] [id number] [phone] Coronavirus 2019 Nasopharygeal ASSAY INFORMATIO <SEE N OTE> 1 CBC W/Diff 01/16/[address] [address] [phone] WBC 4.8 K/mm3 4.0-10.0 RBC 4.62 M/mm3 4.00-5.50 HGB 13.7 gm/dL 12.0-16.0 HCT 41.4 % 36.0-48.8 MCV 89.6 fl 80-96 MCH 29.7 pg 27.0-31.0 MCHC 33.1 g/dL 32.0-36.0 RDW 13.9 % 10.0-14.5 PLT 221 K/mm3 172-450 MPV 9.7 fl 9.0-13.0 GR% 59.6 % 50-80.0 Ig% 0.2 % 0.0-0.2 Ly% 26.6 % 25.0-50.0 Mo% 10.5 % High 2.0-10.0 Eo% 2.1 % 0-5.0 Ba% 1.0 % 0.0-2.0 GR# 2.8 K/mm3 2.0-8.00 Ig# 0.0 K/mm3 0.0-0.2 Ly# 1.3 K/mm3 1.0-5.0 Mo# 0.5 K/mm3 0.10-1.20 Eo# 0.1 K/mm3 0.0-0.5 Ba# 0.1 K/mm3 0.0-0.2 Complete Metabolic Profile 01/16/[address] [address] [phone] Glu 105 mg/dL 74-106 BUN 15 mg/dL 7-18 Cre 0.95 mg/dL 0.6-1.0 Na 143 mmol/L 136-145 K 4.7 mmol/L 3.5-5.1 CL 105 mmol/L 98-107 Co2 31 mmol/L 21-32 CA 9.1 mg/dL 8.5-10.1 Gap 7.0 mmol/L 5-12 GFR 58 mL/min 2 Ast 22 U/L 15-37 Alt 32 U/L 12-78 Alk 76 U/L 46-116 Tbili 1.4 mg/dL High 0.2-1.0 TP 6.8 g/dL 6.4-8.2 Alb 3.6 gm/dL 3.4-5.0 Lipid Profile 01/16/[address] [id number] [phone] Chol 271 mg/dL High 0-200 Trig 280 mg/dL High 0-150 zzzLDL 155 mg/dL High 0-100 HDL 60 mg/dL 40-60 CHDL 4.5 0.0-5.0 Laboratory test finding 01/16/[address] [address] [phone] TSH 2.263 uIU/mL 0.358-3.74 3 Urinalysis 01/16/[address] [address] [phone] Ucol YELLOW Uapp CLEAR Ugl NEGATIVE mg/dL Negative Ubil NEGATIVE Negative Uket NEGATIVE mg/dL Negative Sgu >= 1.030 1.005-1.030 Ubl NEGATIVE Negative Rocael 5.5 5.0-9.0 Upro NEGATIVE mg/dL Negative Uuro NORMAL(0.2-1) mg/dL 0-1 Unit NEGATIVE Negative Ule NEGATIVE Negative Laboratory test finding 01/16/[address] [address] [phone] C Reactive Protein 2.9 mg/L 0.0-3.0 1 ASSAY INFORMATION: Real Time RT-PCR or TMA. Both RT-PCR and TMA are nucleic acid amplification tests (NAAT) which are molecular testing modalities and recommended by the CDC for passenger travel. Testing and International Air Travel, cdc.gov/coronavirus/2019-ncov/travelers/lhddjlr-gey-fvvbga.html 07/14/2020 NOTE: The COVID-19 assay is under Emergency Use Authorization (EUA) by the U.S. Food and Drug Administration. [facility] [employer] and [facility] are designated as high complexity laboratories by the Clinical Laboratory Improvement Amendments of 1988 (CLIA) and are qualified to perform this test. Not Detected 2 GFR IS CALCULATED IN mL/min/ 1.73m2 NORMAL FUNCTION: >90 MILDLY DECREASED: 60-89 MILDY TO MODERATELY DECREASED: 45-59 MODERATELY TO SEVERELY DECREASED: 30-44 SEVERELY DECREASED: 15-29 RENAL FAILURE: <15 3 FAX [phone] Procedures Date Code Description Status 12/05/2020 50191 Office/Outpatient Established Lo w MDM 20-29 Min Completed 11/23/2020 26747 Chronic Care MGMT 20 Mins Clinical Staff Time Per Calendar Month Completed 09/28/2020 02779 Chronic Care MGMT 20 Mins Clinical Staff Time Per Calendar Month Completed 09/27/2020 18353 Office/Outpatient Established Mo d MDM 30-39 Min Completed 05/29/2019 [id number] Mammogram Completed 07/19/2016 [id number] Mammogram Completed 07/18/2016 [id number] Bone Mineral Density Test [facility] 01/13/2015 [id number] Mammogram Completed 09/30/2014 [id number] Mammogram Completed 01/11/2014 [id number] Mammogram Completed 12/31/2012 [id number] Mammogram Completed 09/15/2012 [id number] Bone Mineral Density Test [facility] 01/16/2012 [id number] Colonoscopy Completed 05/01/2010 292527174 Bone Mineral Density Test [facility] 12/17/2007 [id number] Mammogram Completed 04/24/2006 [id number] Colonoscopy Completed Medical Devices Description No Information Available Encounters Type Date Location Provider Dx Diagnosis [facility] K30 Functional dyspepsia K20.91 Esophagitis, unspecified wit h bleeding R42 Dizziness and giddiness Office Visit 09/27/2020 9:45a [facility] R42 Dizziness and giddiness I10 Essential (primary) hyperten evans G25.0 Essential tremor K21.9 Gastro-esophageal reflux dis ease without esophagitis M15.9 Polyosteoarthritis, unspecif ied E78.00 Pure hypercholesterolemia, u nspecified R73.09 Other abnormal glucose J30.9 Allergic rhinitis, unspecifi ed Assessments Date Code Description Provider 12/05/2020 K30 Functional dyspepsia Melanie Valdovinos M.D. 12/05/2020 K20.91 Esophagitis, unspecified with bl eeding Melanie Bradley M.D. 12/05/2020 R42 Dizziness and giddiness Melanie Bradley M.D. 11/23/2020 I10 Essential (primary) hypertension Melanie Bradley M.D. 11/23/2020 K21.9 Gastro-esophageal reflux disease without esophagitis Melanie Bradley M.D. 09/28/2020 I10 Essential (primary) hypertension Melanie Bradley M.D. 09/28/2020 K21.9 Gastro-esophageal reflux disease without esophagitis Melanie Bradley M.D. 09/27/2020 R42 Dizziness and giddiness Melanie Bradley M.D. 09/27/2020 I10 Essential (primary) hypertension Melanie Bradley M.D. 09/27/2020 G25.0 Essential tremor Melanie cespedes M.D. 09/27/2020 K21.9 Gastro-esophageal reflux disease without esophagitis Melanie Bradley M.D. 09/27/2020 M15.9 Polyosteoarthritis, unspecified Melanie Bradley M.D. 09/27/2020 E78.00 Pure hypercholesterolemia, unspe cified Melanie Bradley M.D. 09/27/2020 R73.09 Other abnormal glucose Melanie Bradley M.D. 09/27/2020 J30.9 Allergic rhinitis, unspecified J tavares Bradley M.D. Plan of Treatment Future Appointment(s):* 03/27/2021 2:40 pm - Nurse #2 at [facility] * 03/27/2021 3:00 pm - Melanie Bradley M.D. at [facility] 12/05/2020 - Melanie Bradley M.D.* K30 Functional dyspepsia * K20.91 Esophagitis, unspecified with bleeding * R42 Dizziness and giddiness Functional Status Description No Information Available Mental Status Description No Information Available Referrals Refer to Dr Reason for Referral Status Appt Date Seth Mcgraw MD CONSULT FOR DYSPEPSIA, PT I S SCHEDULED FOR AN UGI AT [facility] ON 01/03/21 Patient Notified 01/24/2021 [address] [address] [phone] Dariusz Serra MD CARDIOLOGY CONSULT FOR PRESYNCOPE Patient N otified 10/26/2020 [facility] [address], [place] [address] [phone] Dariusz Serra MD STRESS ECHO DX:PRESYNCOPE Scheduled 01/12/2021 [facility] [address], [place] [address] [phone]
--- OUTSIDE RECORDS SUMMARY | 2021-03-22 09:26 | CCD | Continuity of Care Document ---
Author Author [facility] Radha Sahu Organization Unknown Address [address] [place] [address], [place] [address] Phone Unavailable Care Team Providers Care News Correspondent Name Role Phone Melanie Bradley MD AUTM [phone] Problems Active Problems Provider Date Benign essential [...] Protein 4.1 Procedures Date Code Description Status 02/21/2021 99721 Implantable Loop Recorder System , Review And Report Completed 01/18/2021 27850 Implantable Loop Recorder System , Review And Report Completed 01/11/2021 68247 Echocardiogram 2-D Doppler Color Completed 12/19/2020 83250 Office/Outpatient Established Mi nimal Problem(S) Completed 10/26/2020 91878 Office/Outpatient New Moderate M DM 45-59 Minutes Completed 10/26/2020 14151 ECG 12-Lead Completed Medical Devices Description No Information Available Encounters Type Date Location Provider Dx Diagnosis Office Visit 12/19/2020 11:00a Main Office Shelly Mcknight PA-C R55 Syncope and collapse Office Visit 10/26/2020 3:00p Main Office Dariusz Serra MD R55 Syncope and collapse R94.31 Abnormal electrocardiogram [ ECG] [EKG] Assessments Date Code Description Provider 02/21/2021 Z95.818 Presence of other cardiac implan ts and grafts [facility] 01/18/2021 Z95.818 Presence of other cardiac implan ts and grafts [facility] 01/11/2021 R55 Syncope and collapse ECHO 01/11/2021 R94.31 Abnormal electrocardiogram [ECG] [EKG] ECHO 12/19/2020 R55 Syncope and collapse Shelly bourne PA-C 10/26/2020 R55 Syncope and collapse Dariusz kwan MD 10/26/2020 R94.31 Abnormal electrocardiogram [ECG] [EKG] Dariusz Serra MD Plan of Treatment Future Appointment(s):* 03/27/2021 7:00 am - [facility] at Main [...]
--- OUTSIDE RECORDS SUMMARY | 2021-03-22 09:26 | CCD | Continuity of Care Document ---
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 Procedures Date Code Description Status 01/18/2021 62411 Implantable Loop Recorder System , Review And Report Completed 01/11/2021 10825 Echocardiogram 2-D Doppler Color Completed 12/19/2020 31365 Office/Outpatient Established Mi nimal Problem(S) Completed 10/26/2020 69889 Office/Outpatient New Moderate M DM 45-59 Minutes Completed 10/26/2020 67009 ECG 12-Lead Completed Medical Devices Description No Information Available Encounters Type Date Location Provider Dx Diagnosis Office Visit 12/19/2020 11:00a Main Office Shelly Mcknight PA-C R55 Syncope and collapse Office Visit 10/26/2020 3:00p Main Office Dariusz Serra MD R55 Syncope and collapse R94.31 Abnormal electrocardiogram [ ECG] [EKG] Assessments Date Code Description Provider 01/18/2021 Z95.818 Presence of other cardiac implan ts and grafts [facility] 01/11/2021 R55 Syncope and collapse ECHO 01/11/2021 R94.31 Abnormal electrocardiogram [ECG] [EKG] ECHO 12/19/2020 R55 Syncope and collapse Shelly bourne PA-C 10/26/2020 R55 Syncope and collapse Dariusz kwan MD 10/26/2020 R94.31 Abnormal electrocardiogram [ECG] [EKG] Dariusz Serra MD Plan of Treatment Future Appointment(s):* 02/21/2021 7:00 am - [facility] Main [...]
--- OUTSIDE RECORDS SUMMARY | 2021-03-22 09:26 | CCD | Continuity of Care Document ---
Author Author Radha TYSON MD Organization Unknown Address [address] [place] [address], [address] [place] [address] Phone [phone] Care Team Providers Care Senior Technical Manager Name Role Phone Melanie Bradley MD AUTM [phone] Debra Adams AUTM [phone] Problems Description No Information Available Social History [...] Available Procedures Date Code Description Status 01/25/2021 38161 Office/Outpatient Established Mo d MDM 30-39 Min Completed 01/25/2021 30206 X-Ray Knee Ap & Lateral W/Obliqu es Three Views Completed 01/25/2021 78064 X-Ray Finger(S) Two Views Comple flory 01/25/2021 21659 Inject/Aspiration Ganglion Cyst Any Location Completed Medical Devices Description No Information Available Encounters Type Date Location Provider Dx Diagnosis Office Visit 01/25/2021 2:45p [place] Katharine Tyson MD Z4 7.1 Aftercare following joint replacement surgery Z96.653 Presence of artificial knee joint, bilateral R22.31 Localized swelling, mass and lump, right upper limb Assessments Date Code Description Provider 01/25/2021 Z47.1 Aftercare following joint replac ement surgery Katharine Tyson MD 01/25/2021 Z96.653 Presence of artificial knee join t, bilateral Katharine Tyson MD 01/25/2021 R22.31 Localized swelling, mass and lum p, right upper limb Katharine Tyson MD Plan of Treatment 01/25/2021 - Kathraine Tyson MD* Z47.1 Aftercare following joint replacement surgery * Z96.653 Presence of artificial knee joint, bilateral * R22.31 Localized swelling, mass and lump, right upper limb* Follow up:* 2 years [facility] knee xray with dpv Functional Status Description No Information Available Mental Status Description No Information Available Referrals Description No Information Available
--- OUTSIDE RECORDS SUMMARY | 2021-03-22 09:27 | CCD ---
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 Role Phone Lisandro Mcgraw MD Unavailable Unavailable Lisandro Mcgraw MD Unavailable Unavailable Lisandro Mcgraw MD Unavailable Unavailable Lisandro Mcgraw MD Unavailable Unavailable Lisandro Mcgraw MD Unavailable Unavailable Lisandro Mcgraw MD Unavailable Unavailable Lisandro Mcgraw MD Unavailable Unavailable Lisandro Mcgraw MD Unavailable Unavailable Lisandro Mcgraw MD Unavailable Unavailable Lisandro Mcgraw MD Unavailable Unavailable Lisandro Mcgraw MD Unavailable Unavailable Lisandro Mcgraw MD Unavailable Unavailable Lisandro Mcgraw MD Unavailable Unavailable Lisandro Mcgraw MD Unavailable Unavailable Lisandro Mcgraw MD Unavailable Unavailable Lisandro Mcgraw MD Unavailable Unavailable Lisandro Mcgraw MD Unavailable Unavailable Lisandro Mcgraw MD Unavailable Unavailable Lisandro Mcgraw MD Unavailable Unavailable Lisandro Mcgraw MD Unavailable Unavailable Lisandro Mcgraw MD Unavailable Unavailable Lisandro Mcgraw MD Unavailable Unavailable Lisandro Mcgraw MD Unavailable Unavailable Lisandro Mcgraw MD Unavailable Unavailable Lisandro Mcgraw MD Unavailable Unavailable Lisandro Mcgraw MD Unavailable Unavailable Lisandro Mcgraw MD Unavailable Unavailable Lisandro Mcgraw MD Unavailable Unavailable Lisandro Mcgraw MD Unavailable Unavailable Mariluz, S Seth MISHRA Unavailable Unavailable Mariluz, S Seth MISHRA Unavailable Unavailable Mariluz, S Seth MD Unavailable Unavailable Mariluz, S Seth MD Unavailable Unavailable Mariluz, S Seth MD Unavailable Unavailable Mariluz, S Seth MD Unavailable Unavailable Mariluz, S Seth MD Unavailable Unavailable Mariluz, S Seth MD Unavailable Unavailable Mariluz, S Seth MD Unavailable Unavailable Mariluz, S Seth MD Unavailable Unavailable Mariluz, S Seth MD Unavailable Unavailable Mariluz, S Seth MD Unavailable Unavailable Mariluz, S Seth MD Unavailable Unavailable Mariluz, S Seth MD Unavailable Unavailable Mariluz, S Seth MD Unavailable Unavailable Mariluz, S Seth MD Unavailable Unavailable Mariluz, S Seth MD Unavailable Unavailable Mariluz, S Seth MD Unavailable Unavailable Mariluz, S Seth MD Unavailable Unavailable Mariluz, S Seth MD Unavailable Unavailable Mariluz, S Seth MD Unavailable Unavailable Symenow, Nancy Shelly PA Unavailable Unavailable Symenow, Nancy Shelly PA Unavailable Unavailable Symenow, Nancy Shelly PA Unavailable Unavailable Symenow, Nancy Shelly PA Unavailable Unavailable Symenow, Nancy Shelly PA Unavailable Unavailable Symenow, Nancy Shelly PA Unavailable Unavailable Symenow, Nancy Shelly PA Unavailable Unavailable Symenow, Nancy Shelly PA Unavailable Unavailable Symenow, Nancy Shelly PA Unavailable Unavailable Symenow, Nancy Shelly PA Unavailable Unavailable Symenow, Nancy Shelly PA Unavailable Unavailable Symenow, Nancy Shelly PA Unavailable Unavailable Symenow, Nancy Shelly PA Unavailable Unavailable Symenow, Nancy Shelly PA Unavailable Unavailable Symenow, Nancy Shelly PA Unavailable Unavailable Symenow, Nancy Shelly PA Unavailable Unavailable Symenow, Nancy Shelly PA Unavailable Unavailable Symenow, Nancy Shelly PA Unavailable Unavailable Symenow, Nancy Shelly PA Unavailable Unavailable Symenow, Nancy Shelly PA Unavailable Unavailable Symenow, Nancy Shelly PA Unavailable Unavailable Symenow, Nancy Shelly PA Unavailable Unavailable Symenow, Nancy Shelly PA Unavailable Unavailable Symenow, Nancy Shelly PA Unavailable Unavailable Symenow, Nancy Shelly PA Unavailable Unavailable Symenow, Nancy Shelly PA Unavailable Unavailable Symenow, Nancy Shelly PA Unavailable Unavailable Symenow, Nancy Shelly PA Unavailable Unavailable Symenow, Nancy Shelly PA Unavailable Unavailable Symenow, Nancy Shelly PA Unavailable Unavailable Symenow, Nancy Shelly PA Unavailable Unavailable Symenow, Nancy Shelly PA Unavailable Unavailable Symenow, Nancy Shelly PA Unavailable Unavailable Symenow, Nancy Shelly PA Unavailable Unavailable Josephine Bradley MD Unavailable Unavailable Josephine Bradley MD Unavailable Unavailable Josephine Bradley MD Unavailable Unavailable Josephine Bradley MD Unavailable Unavailable Josephine Bradley MD Unavailable Unavailable Josephine Bradley MD Unavailable Unavailable Josephine Bradley MD Unavailable Unavailable Josephine Bradley MD Unavailable Unavailable Josephine Bradley MD Unavailable Unavailable Josephine Bradley MD Unavailable Unavailable Josephine Bradley MD Unavailable Unavailable Josephine Bradley MD Unavailable Unavailable Josephine Bradley MD Unavailable Unavailable Josephine Bradley MD Unavailable Unavailable Josephine Bradley MD Unavailable Unavailable Josephine Bradley MD Unavailable Unavailable Josephine Bradley MD Unavailable Unavailable Josephine Bradley MD Unavailable Unavailable Josephine Bradley MD Unavailable Unavailable Josephine Bradley MD Unavailable Unavailable Josephine Bradley MD Unavailable Unavailable Josephine Bradley MD Unavailable Unavailable Josephine Bradley MD Unavailable Unavailable Josephine Bradley MD Unavailable Unavailable Josephine Bradley MD Unavailable Unavailable Josephine Bradleyie Unavailable Unavailable Josephine Bradley MD Unavailable Unavailable Josephine Bradley MD Unavailable Unavailable Josephine Bradley MD Unavailable Unavailable Josephine Bradley MD Unavailable Unavailable Josephine Bradley MD Unavailable Unavailable Josephine Bradley MD Unavailable Unavailable Josephine Bradley MD Unavailable Unavailable Josephine Bradley MD Unavailable Unavailable Josephine Bradley MD Unavailable Unavailable Josephine Bradley MD Unavailable Unavailable Josephine Bradley MD Unavailable Unavailable MirnaJosephine davis MD Unavailable Unavailable MirnaJosephine davis MD Unavailable Unavailable Josephine Bradley MD Unavailable Unavailable MirnaJosephine davis MD Unavailable Unavailable MirnaJosephine MD Unavailable Unavailable MirnaJosephine davis MD Unavailable Unavailable MirnaJosephine zimmer MD Unavailable Unavailable Josephine Bradley MD Unavailable Unavailable Josephine Bradley MD Unavailable Unavailable Josephine Bradley MD Unavailable Unavailable Josephine Bradley MD Unavailable Unavailable Josephine Bradley MD Unavailable Unavailable MirnaJosephine zimmer MD Unavailable Unavailable Josephine Bradley MD Unavailable Unavailable Josephine Bradley MD Unavailable Unavailable MirnaJosephine zimmer MD Unavailable Unavailable MirnaJosephine zimmer MD Unavailable Unavailable Josephine Bradley MD Unavailable Unavailable Josephine Bradley MD Unavailable Unavailable Josephine Bradley MD Unavailable Unavailable Josephine Bradley MD Unavailable Unavailable Josephine Bradley MD Unavailable Unavailable Josephine Bradley MD Unavailable Unavailable Joesphine Bradley MD Unavailable Unavailable Josephine Bradley MD Unavailable Unavailable Josephine Bradley MD Unavailable Unavailable Josephine Bradley MD Unavailable Unavailable Josephine Bradley MD Unavailable Unavailable Josephine Bradley MD Unavailable Unavailable Josephine Bradley MD Unavailable Unavailable Josephine Bradley MD Unavailable Unavailable Josephine Bradley MD Unavailable Unavailable Josephine Bradley MD Unavailable Unavailable Josephine Bradley MD Unavailable Unavailable Josephine Bradley MD Unavailable Unavailable Josephine Bradley MD Unavailable Unavailable Josephine Bradley MD Unavailable Unavailable Josephine Bradley MD Unavailable Unavailable Josephine Bradley MD Unavailable Unavailable Josephine Bradley MD Unavailable Unavailable Josephine Bradley MD Unavailable Unavailable Josephine Bradley MD Unavailable Unavailable Josephine Bradley MD Unavailable Unavailable Josephine Bradley MD Unavailable Unavailable Josephine Bradley MD Unavailable Unavailable Josephine Bradley MD Unavailable Unavailable Josephine Bradley MD Unavailable Unavailable Jessica Mays SCALE RECLAMATION TENDER Unavailable Unavailable Jessica Mays SCALE RECLAMATION TENDER Unavailable Unavailable Elma, Sis SCALE RECLAMATION TENDER Unavailable Unavailable Elma, Sis SCALE RECLAMATION TENDER Unavailable Unavailable Elma, Sis SCALE RECLAMATION TENDER Unavailable Unavailable Elma, Sis SCALE RECLAMATION TENDER Unavailable Unavailable Elma, Sis SCALE RECLAMATION TENDER Unavailable Unavailable Elma, Sis SCALE RECLAMATION TENDER Unavailable Unavailable Elma, Sis SCALE RECLAMATION TENDER Unavailable Unavailable Elma, Sis SCALE RECLAMATION TENDER Unavailable Unavailable Elma, Sis SCALE RECLAMATION TENDER Unavailable Unavailable Elma, Sis SCALE RECLAMATION TENDER Unavailable Unavailable Elma, Sis SCALE RECLAMATION TENDER Unavailable Unavailable Elma, Sis SCALE RECLAMATION TENDER Unavailable Unavailable Elma, Sis SCALE RECLAMATION TENDER Unavailable Unavailable Elma, Sis SCALE RECLAMATION TENDER Unavailable Unavailable Elma, Sis SCALE RECLAMATION TENDER Unavailable Unavailable Elma, Sis SCALE RECLAMATION TENDER Unavailable Unavailable Elma, Sis SCALE RECLAMATION TENDER Unavailable Unavailable Elma, Sis SCALE RECLAMATION TENDER Unavailable Unavailable Elma, Sis SCALE RECLAMATION TENDER Unavailable Unavailable Elma, Sis SCALE RECLAMATION TENDER Unavailable Unavailable Elma, Sis SCALE RECLAMATION TENDER Unavailable Unavailable Elma, Sis SCALE RECLAMATION TENDER Unavailable Unavailable Elma, Sis SCALE RECLAMATION TENDER Unavailable Unavailable Elma, Sis SCALE RECLAMATION TENDER Unavailable Unavailable Elma, Sis SCALE RECLAMATION TENDER Unavailable Unavailable Elma, Sis SCALE RECLAMATION TENDER Unavailable Unavailable Elma, Sis SCALE RECLAMATION TENDER Unavailable Unavailable Elma, Sis SCALE RECLAMATION TENDER Unavailable Unavailable Elma, Sis SCALE RECLAMATION TENDER Unavailable Unavailable Elma, Sis SCALE RECLAMATION TENDER Unavailable Unavailable Elma, Sis SCALE RECLAMATION TENDER Unavailable Unavailable Elma, Sis SCALE RECLAMATION TENDER Unavailable Unavailable Elma, Sis SCALE RECLAMATION TENDER Unavailable Unavailable Elma, Sis SCALE RECLAMATION TENDER Unavailable Unavailable ANTECOL, Andres GEIGER MD Unavailable Unavailable ANTECOL, Andres GEIGER MD Unavailable Unavailable ANTECOL, Andres GEIGER MD Unavailable Unavailable ANTECOL, Andres GEIGER MD Unavailable Unavailable ANTECOL, Andres GEIGER MD Unavailable Unavailable ANTECOL, Andres GEIGER MD Unavailable Unavailable ANTECOL, Andres GEIGER MD Unavailable Unavailable ANTECOL, Andres GEIGER MD Unavailable Unavailable ANTECOL, Andres GEIGER MD Unavailable Unavailable ANTECOL, Andres GEIGER MD Unavailable Unavailable ANTECOL, Andres GEIGER MD Unavailable Unavailable ANTECOL, Andres GEIGER MD Unavailable Unavailable ANTECOL, Andres GEIGER MD Unavailable Unavailable ANTECOL, Andres GEIGER MD Unavailable Unavailable ANTECOL, Andres GEIGER MD Unavailable Unavailable ANTECOL, Andres GEIGER MD Unavailable Unavailable ANTECOL, Andres GEIGER MD Unavailable Unavailable ANTECOL, Andres GEIGER MD Unavailable Unavailable ANTECOL, Andres GEIGER MD Unavailable Unavailable ANTECOL, Andres GEIGER MD Unavailable Unavailable ANTECOL, Andres GEIGER MD Unavailable Unavailable ANTECOL, Andres GEIGER MD Unavailable Unavailable ANTECOL, Andres GEIGER MD Unavailable Unavailable ANTECOL, Andres GEIGER MD Unavailable Unavailable ANTECOL, Andres GEIGER MD Unavailable Unavailable ANTECOL, Andres GEIGER MD Unavailable Unavailable ANTECOL, Andres GEIGER MD Unavailable Unavailable ANTECOL, Andres GEIGER MD Unavailable Unavailable ANTECOL, Andres GEIGER MD Unavailable Unavailable ANTECOL, Andres GEIGER MD Unavailable Unavailable ANTECOL, Andres GEIGER MD Unavailable Unavailable ANTECOL, Andres GEIGER MD Unavailable Unavailable ANTECOL, Andres GEIGER MD Unavailable Unavailable ANTECOL, Andres GEIGER MD Unavailable Unavailable ANTECOL, Andres GEIGER MD Unavailable Unavailable ANTECOL, Andres GEIGER MD Unavailable Unavailable ANTECOL, Andres GEIGER MD Unavailable Unavailable ANTECOL, Andres GEIGER MD Unavailable Unavailable ANTECOL, Andres GEIGER MD Unavailable Unavailable ANTECOL, Andres GEIGER MD Unavailable Unavailable ANTECOL, Andres GEIGER MD Unavailable Unavailable ANTECOL, Andres GEIGER MD Unavailable Unavailable ANTECOL, Andres GEIGER MD Unavailable Unavailable ANTECOL, Andres GEIGER MD Unavailable Unavailable ANTECOL, Andres GEIGER MD Unavailable Unavailable ANTECOL, Andres GEIGER MD Unavailable Unavailable ANTECOL, Andres GEIGER MD Unavailable Unavailable ANTECOL, Andres GEIGER MD Unavailable Unavailable ANTECOL, Andres GEIGER MD Unavailable Unavailable ANTECOL, Andres GEIGER MD Unavailable Unavailable ANTECOL, Andres GEIGER MD Unavailable Unavailable ANTECOL, Andres GEIGER MD Unavailable Unavailable ANTECOL, Andres GEIGER MD Unavailable Unavailable ANTECOL, Andres GEIGER MD Unavailable Unavailable Vaneenenaam, Stephie Galvez MD Unavailable Unavailable Vaneenenaam, Stephie Galvez MD Unavailable Unavailable Vaneenenaam, Stephie Galvez MD Unavailable Unavailable Vaneenenaam, Stephie Galvez MD Unavailable Unavailable Vaneenenaam, Stephie Galvez MD Unavailable Unavailable Vaneenenaam, Stephie Galvez MD Unavailable Unavailable Vaneenenaam, Stephie Galvez MD Unavailable Unavailable Vaneenenaam, Stephie Galvez MD Unavailable Unavailable Vaneennaeam, Stephie Galvez MD Unavailable Unavailable Vaneenenaam, Stephie Galvez MD Unavailable Unavailable Vaneenenaam, Stephie Galvez MD Unavailable Unavailable Vaneenenaam, Stephie Galvez MD Unavailable Unavailable Vaneenenaam, Stephie Galvez MD Unavailable Unavailable Vaneenenaam, Stephie Galvez MD Unavailable Unavailable Vaneenenaam, Stephie Galvez MD Unavailable Unavailable Vaneenenaam, Stephie Galvez MD Unavailable Unavailable Vaneenenaam, Stephie Galvez MD Unavailable Unavailable Vaneenenaam, Stephie Galvez MD Unavailable Unavailable Vaneenenaam, Stephie Galvez MD Unavailable Unavailable Vaneenenaam, Stephie Galvez MD Unavailable Unavailable Vaneenenaam, Stephie Galvez MD Unavailable Unavailable Vaneenenaam, Stephie Galvez MD Unavailable Unavailable Vaneenenaam, Stephie Galvez MD Unavailable Unavailable Vaneenenaam, Stephie Galvez MD Unavailable Unavailable Vaneenenaam, Stephie Galvez MD Unavailable Unavailable Vaneenenaam, Stephie Galvez MD Unavailable Unavailable Vaneenenaam, Stephie Galvez MD Unavailable Unavailable Vaneenenaam, Stephie Galvez MD Unavailable Unavailable Vaneenenaam, Stephie Galvez MD Unavailable Unavailable Vaneenenaam, Stephie Galvez MD Unavailable Unavailable Vaneenenaam, Stephie Galvez MD Unavailable Unavailable Vaneenenaam, Stephie Galvez MD Unavailable Unavailable Vaneenenaam, Stephie Galvez MD Unavailable Unavailable Vaneenenaam, Stephie Galvez MD Unavailable Unavailable Vaneenenaam, Stephie Galvez MD Unavailable Unavailable Vaneenenaam, Stephie Galvez MD Unavailable Unavailable Vaneenenaam, Stephie Galvez MD Unavailable Unavailable Vaneenenaam, Stephie Galvez MD Unavailable Unavailable Vaneenenaam, Stephie Galvez MD Unavailable Unavailable Vaneenenaam, Stephie Galvez MD Unavailable Unavailable Vaneenenaam, Stephie Galvez MD Unavailable Unavailable Vaneenenaam, Stephie Galvez MD Unavailable Unavailable Vaneenenaam, Stephie Galvez MD Unavailable Unavailable Vaneenenaam, Stephie Galvez MD Unavailable Unavailable Vaneenenaam, Stephie Galvez MD Unavailable Unavailable Vaneenenaam, Stephie Galvez MD Unavailable Unavailable MARILUZ, A JENNA DO Unavailable Unavailable MARILUZ, A JENNA DO Unavailable Unavailable MARILUZ, A JENNA DO Unavailable Unavailable MARILUZ, A JENNA DO Unavailable Unavailable MARILUZ, A JENNA DO Unavailable Unavailable MARILUZ, A JENNA DO Unavailable Unavailable MARILUZ, A JENNA DO Unavailable Unavailable MARILUZ, A JENNA DO Unavailable Unavailable MARILUZ, A JENNA DO Unavailable Unavailable MARILUZ, A JENNA DO Unavailable Unavailable MARILUZ, A JENNA DO Unavailable Unavailable MARILUZ, A JENNA DO Unavailable Unavailable MARILUZ, A JENNA DO Unavailable Unavailable MARILUZ, A JENNA DO Unavailable Unavailable MARILUZ, A JENNA DO Unavailable Unavailable MARILUZ, A JENNA DO Unavailable Unavailable MARILUZ, A JENNA DO Unavailable Unavailable MARILUZ, A JENNA DO Unavailable Unavailable MARILUZ, A JENNA DO Unavailable Unavailable MARILUZ, A JENNA DO Unavailable Unavailable MARILUZ, A JENNA DO Unavailable Unavailable MARILUZ, A JENNA DO Unavailable Unavailable Re-disclosure Warning The records that you are about to access may contain information from federally-assisted alcohol or drug abuse programs. If such information is present, then the following federally mandated warning applies: This information has been disclosed to you from records protected by federal confidentiality rules (42 CFR part 2). The federal rules prohibit you from making any further disclosure of this information unless further disclosure is expressly permitted by the written consent of the person to whom it pertains or as otherwise permitted by 42 CFR part 2. A general authorization for the release of medical or other information is NOT sufficient for this purpose. The Federal rules restrict any use of the information to criminally investigate or prosecute any alcohol or drug abuse patient.The records that you are about to access may contain highly sensitive health information, the redisclosure of which is protected by Article 27-F of the [facility] Public Health law. If you continue you may have access to information: Regarding HIV / AIDS; Provided by facilities licensed or operated by the [facility] Office of Mental Health; or Provided by the [facility] Office for People With Developmental Disabilities. If such information is present, then the following [facility] mandated warning applies: This information has been disclosed to you from confidential records which are protected by state law. State law prohibits you from making any further disclosure of this information without the specific written consent of the person to whom it pertains, or as otherwise permitted by law. Any unauthorized further disclosure in violation of state law may result in a fine or [place] [facility] sentence or both. A general authorization for the release of medical or other information is NOT sufficient authorization for further disc losure. Allergies and Adverse Reactions Type Description Substance Reaction Status Data Source(s ) Drug allergy Restasis Restasis eye pain, headache Active GRE ENWAY (Fely Zamudio MD [facility]) Drug allergy Restasis Restasis eye pain, headache Active GRE ENWAY (Fely Zamudio MD [facility]) Family History Family Member Name Family Member Gender Family Member Status Date o f Status Description Data Source(s) Unknown Female Problem [facility] ([facility]) Unknown Female Problem [facility] ([facility]) Unknown Female Problem [facility] ([facility]) Unknown Female Problem [facility] ([facility]) Unknown Female Problem [facility] ([facility]) Unknown Female Problem [facility] ([facility]) Unknown Female Problem [facility] ([facility]) Encounters Encounter Providers Location Date Indications Data Source(s ) Outpatient Attender: Stephie Tyson MD Physical Therap y 01/25/2021 02:45:00 PM EDT [facility] ([facility]) Outpatient Attender: Seth Mcgraw MD Main Office 01/24/2021 10:00:00 AM EDT [facility] ([facility]) Outpatient Attender: Melanie Bradley MDReferrer: Baltazar Bradley MD [facility] 01/16/2021 09:11:00 AM EDT - 01/16/2021 09:11:00 AM [facility] Outpatient Attender: Debra HAWKINSP Main Office 12/21/2020 01:00:00 PM EDT [facility] ([facility]) Outpatient Attender: Shelly PARK Main Office 12/19/2020 11:00:00 AM EDT [facility] ([facility]) Outpatient Attender: Melanie Aragong [facility] 11:30:00 AM EDT [facility] ([facility] ) Outpatient Attender: FELY LIRIANO MD Main Office 10/26/2020 03:00:00 PM EDT [facility] ([facility]) Outpatient<td ID="encounterTypeDescripti onID0">4 Month Follow-Up</td><td>Jenna Mcgraw DO</td><td>Fely Ybarra MD [facility]</td><td>10/18/2020</td><td>9:13AM</td><td>10:52AM</td><td><content ID="encounterDiagnosisID0-0">Dry Eye Syndrome Both Eyes</content>, <content ID="encounterDiagnosisID0-1">Pseudophakic - Both Eyes</content></td> Attender: JENNA Su MD [facility] 10/18/2020 09:13:00 AM EDT - 10/18/2020 10:52:00 AM EDT Pseudophakic - Both EyesDry Eye Syndrome Both Eyes JAIME (Fely Zamudio MD [facility]) 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 Outpatient Attender: Melanie Sena 09:45:00 AM [facility] Attender: Melanie Bradley MDReferrer: Baltazar Bradley MD [facility] 09/13/2020 09:06:00 AM EDT - 09/13/2020 09:06:00 AM [facility] Outpatient Attender: Melanie Sena 12:00:00 PM EST [facility] Outpatient Attender: Melanie Bradley MDReferrer: Baltazar Bradley [facility] 05/31/2020 07:58:00 AM EST - 05/31/2020 07:58:00 AM [facility] <td ID="encounterTypeDescriptionID1">[address] Follow-Up</td><td>Jenna Mcgraw DO</td><td>Fely Ybarra MD [facility]</td><td>05/12/2020</td><td>1:52PM</td><td>3:29PM</td><td><content ID="encounterDiagnosisID1-0">Dry Eye Syndrome Both Eyes</content></td>Outpatient Attender: JENNA Su MD [facility] 04/26 01:52:00 PM EST - 05/12/2020 03:29:00 PM EST Dry Eye Syndrome Both EyesDry Eye Syndro me Both Eyes JAIME (Fely Zamudio MD [facility]) 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 Outpatient<td ID="encounterTypeDescripti onID2">1 Year Follow-Up</td><td>Jenna Mcgraw DO</td><td>Fely Ybarra MD [facility]</td><td>03/31/2020</td><td>12:50PM</td><td>1:45PM</td><td><content ID="encounterDiagnosisID2-0">Pseudophakic - Both Eyes</content>, <content ID="encounterDiagnosisID2-1">Dry Eye Syndrome Both Eyes</content>, <content ID="encounterDiagnosisID2-2">Vitreous Disorders Degeneration</content></td> Attender: JENNA Su MD [facility] 03/31/2020 12:50:00 PM EST - 03/31/2020 01:45:00 PM EST Vitreous Disorders DegenerationVitreous Disorders DegenerationVitreous Disorders DegenerationDry Eye Syndrome Both EyesPseudophakic - Both EyesDry Eye Syndrome Both EyesPseudophakic - Both EyesDry Eye Syndrome Both EyesPseudophakic - Both Eyes JAIME (Fely Zamudio MD [facility]) Vitreous Disorders Degeneration Vitreous Disorders Degeneration Vitreous Disorders Degeneration 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 COVID-19 VACCINE, MRNA-1273, LNP-S (MODERNA)/PF 07/20/2020 1 2:00:00 AM EST completed [facility] COVID-19 VACCINE Moderna 06/22/2020 12:00:00 AM EST completed [facility] Vaccine Series Complete: NOThis Data was Submitted to [facility] Via [employer]. COVID-19 VACCINE, MRNA-1273, LNP-S (MODERNA)/PF 06/22/2020 1 2:00:00 AM EST completed [facility] This CVX code allows reporting of a vacc ination when formulation is unknown (for example, when recording a Influenza vaccination when noted on a vaccination card) 02/25/2020 02:47:00 PM EDT completed [facility] ([facility]) INFLUENZA VACCINE QUADRIVALENT (65 YR UP)/MF59 C.1/PF 02/25/2020 12:00:00 AM EDT completed [facility] Medications Medication Brand Name Start Date Product Form Dose Route Admi nistrative Instructions Pharmacy Instructions Status Indications Reaction Description Data Source(s) 1.479-0.188- 0.225 gram 01/25/2021 12:00:00 AM EDT tablet 24 TAKE DIRECTED TAKE DIRECTED SOLD: 01/31/2021 [facility] Aluminum Hydroxide 160 MG / magnesium carbonate 105 MG Chewable Tablet Gaviscon Extra Strength 01/24/2021 12:00:00 AM EDT ORAL active [facility] ([facility]) Sutab Sutab 01/24/2021 12:00:00 AM EDT active [facility] ([facility]) pantoprazole 40 MG Delayed Release Oral Tablet PANTOPRAZOLE SODIUM 11/01/2020 12:00:00 AM EDT tablet,delayed release (DR/EC) 90 T MARCO ONE TABLET BY MOUTH EVERY DAY TAKE ONE TABLET BY MOUTH EVERY DAY SOLD: 11/01/2020 [facility] pantoprazole 40 MG Delayed Release Oral Tablet PANTOPRAZOLE SODIUM 11/01/2020 12:00:00 AM EDT tablet,delayed release (DR/EC) 90 T MARCO ONE TABLET BY MOUTH EVERY DAY TAKE ONE TABLET BY MOUTH EVERY DAY SOLD: 02/15/2021 [facility] Biotin 5 MG Oral Capsule Biotin 5000 10/25/2020 12:00:00 AM EDT ORAL active [facility] ([facility]) 625 mg 10/24/2020 12:00:00 AM EDT tablet 60 TAKE 1TO 2 TABLETS BY MOUTH ONCE DAILY WITH FOOD TAKE 1TO 2 TABLETS BY MOUTH ONCE DAILY WITH FOOD SOLD: 12/30/2020 [facility] 625 mg 10/24/2020 12:00:00 AM EDT tablet 60 TAKE 1TO 2 TABLETS BY MOUTH ONCE DAILY WITH FOOD TAKE 1TO 2 TABLETS BY MOUTH ONCE DAILY WITH FOOD SOLD: 10/26/2020 [facility] 625 mg 10/24/2020 12:00:00 AM EDT tablet 60 TAKE 1TO 2 TABLETS BY MOUTH ONCE DAILY WITH FOOD TAKE 1TO 2 TABLETS BY MOUTH ONCE DAILY WITH FOOD SOLD: 03/10/2021 [facility] Covid-19 vaccine, Unspecified 07/20/2020 12:00:00 AM EST completed [facility]) Medication administered onsite Covid-19 vaccine, Unspecified 06/22/2020 12:00:00 AM EST completed [facility] ([facility]) Medication administered onsite 120 mg 06/09/2020 12:00:00 AM EST capsule,extended releas e 24 hr 90 TAKE ONE CAPSULE BY MOUTH AT BEDTIME TAKE ONE CAPSULE BY MOUTH AT BEDTIME SOLD: 09/28/2020 [facility] 120 mg 06/09/2020 12:00:00 AM EST capsule,extended releas e 24 hr 90 TAKE ONE CAPSULE BY MOUTH AT BEDTIME TAKE ONE CAPSULE BY MOUTH AT BEDTIME SOLD: 12/30/2020 [facility] 120 mg 06/09/2020 12:00:00 AM EST capsule,extended releas e 24 hr 90 TAKE ONE CAPSULE BY MOUTH AT BEDTIME TAKE ONE CAPSULE BY MOUTH AT BEDTIME SOLD: 06/13/2020 [facility] Eysuvis 0.25% Ophthalmic Suspension Eysuvis 0.25% Ophthalmic Suspension 05/17/2020 12:00:00 AM EST aborted loteprednol etabonate 2.5 MG/ML Ophthalmic Suspension [Eysuvis] [facility] (Fely Zamudio MD [facility]) 625 mg 04/18/2020 12:00:00 AM EST tablet 60 TAKE ONE TO TWO TABLETS BY MOUTH EVERY DAY WITH FOOD TAKE ONE TO TWO TABLETS BY MOUTH EVERY DAY WITH FOOD S OLD: 06/22/2020 [facility] 625 mg 04/18/2020 12:00:00 AM EST tablet 60 TAKE ONE TO TWO TABLETS BY MOUTH EVERY DAY WITH FOOD TAKE ONE TO TWO TABLETS BY MOUTH EVERY DAY WITH FOOD S OLD: 08/24/2020 [facility] 625 mg 04/18/2020 12:00:00 AM EST tablet 60 TAKE ONE TO TWO TABLETS BY MOUTH EVERY DAY WITH FOOD TAKE ONE TO TWO TABLETS BY MOUTH EVERY DAY WITH FOOD S OLD: 04/25/2020 [facility] 0.05 % 04/05/2020 12:00:00 AM EST dropperette 180 INSTILL ONE DROP IN EACH EYE TWO TIMES A DAY INSTILL ONE DROP IN EACH EYE TWO TIMES A DAY SOLD: 04/07/2020 [facility] Cyclosporine 0.5 MG/ML Ophthalmic Suspen evans [Restasis] Restasis 0.05% Ophthalmic Emulsion Restasis 0.05% Ophthalmic Emulsion 03/31/2020 12:00:00 AM EST aborted cyclospo rine 0.5 MG/ML Ophthalmic Suspension [Restasis] [facility] (Fely Zamudio MD [facility]) 4 mg 02/02/2020 12:00:00 AM EDT tablets,dose pack 21 TAKE BY MOUTH DIRECTED TAKE BY MOUTH DIRECTED SOLD: 02/02/2020 [facility] pantoprazole 40 MG Delayed Release Oral Tablet PANTOPRAZOLE SODIUM 11/07/2019 12:00:00 AM EDT tablet,delayed release (DR/EC) 90 T MARCO ONE TABLET BY MOUTH EVERY DAY TAKE ONE TABLET BY MOUTH EVERY DAY SOLD: 08/11/2020 [facility] 40 mg 11/07/2019 12:00:00 AM EDT tablet,delayed release (DR/EC) 90 TAKE ONE TABLET BY MOUTH EVERY DAY TAKE ONE TABLET BY MOUTH EVERY DAY SOLD: 02/16/2020 [facility] pantoprazole 40 MG Delayed Release Oral Tablet PANTOPRAZOLE SODIUM 11/07/2019 12:00:00 AM EDT tablet,delayed release (DR/EC) 90 T MARCO ONE TABLET BY MOUTH EVERY DAY TAKE ONE TABLET BY MOUTH EVERY DAY SOLD: 05/11/2020 [facility] 120 mg 09/15/2019 12:00:00 AM EDT capsule,extended releas e 24 hr 90 TAKE ONE CAPSULE BY MOUTH AT BEDTIME TAKE ONE CAPSULE BY MOUTH AT BEDTIME SOLD: 04/03/2020 [facility] 625 mg 06/29/2019 12:00:00 AM EST tablet 60 TAKE ONE TO TWO TABLETS BY MOUTH EVERY DAY WITH FOOD TAKE ONE TO TWO TABLETS BY MOUTH EVERY DAY WITH FOOD S OLD: 02/16/2020 [facility] prednisolone acetate 10 MG/ML Ophthalmic Suspension [Pred Forte] Pred Forte 1% Ophthalmic Suspension Pred Forte 1% Ophthalmic Suspension 03/06/2019 12:00:0 0 AM EDT aborted predniso lone acetate 10 MG/ML Ophthalmic Suspension [Pred Forte] [facility] (Fely Zamudio MD [facility]) loteprednol etabonate 0.005 MG/MG Ophtha lmic Gel [Lotemax] Lotemax 0.5% Ophthalmic Gel Lotemax 0.5% Ophthalmic Gel 03/06/2019 12:00:00 AM EDT aborted loteprednol etabonate 0.005 MG/M G Ophthalmic Gel [Lotemax] [facility] (Fely Zamudio MD [facility]) Cyclosporine 0.5 MG/ML Ophthalmic Suspen evans [Restasis] Restasis 0.05% Ophthalmic Emulsion Restasis 0.05% Ophthalmic Emulsion 02/24/2019 12:00:00 AM EDT aborted cyclospo rine 0.5 MG/ML Ophthalmic Suspension [Restasis] [facility] (Fely Zamudio MD [facility]) Insurance Providers Payer name Policy type / Coverage type Policy ID Covered constitution party ID Covered constitution party's relationship to jerome Policy Jerome Plan Information BLUE CROSS [id number] S [id number] [place] [id number] S [id number] [place] [id number] S [id number] [facility] Part B [id number] Self [id number] [facility] Part B [id number] Self [id number] [employer] [employer] [id number] S [id number] [place] [id number] S [id number] Medicare Natl Govt Servic Medicare Primary [id number] Self 2 [id number] Medicare Natl Govt Servic Medicare Primary [id number] Self 5 [id number] Medicare Natl Govt Servic Medicare Primary [id number] Self 5 [id number] MEDICARE [id number] SP [id number] Medicare Natl Govt Servic Medicare Primary [id number] Self 5 [id number] Medicare Natl Govt Servic Medicare Primary [id number] Self 2 [id number] [place]IC[place] [id number] S [id number] [employer] [employer] [id number] S [id number] Medicare Natl Govt Servic Medicare Primary [id number] Self 2 [id number] Medicare Natl Govt Servic Medicare Primary [id number] Self 5 [id number] Medicare Natl Govt Servic Medicare Primary [id number] Self MEDICARE [id number] SP [id number] A [place] [employer] [id number] S [id number] [place]IC[place] [id number] S [id number] Medicare [place] Medicare Primary [id number] Self 5 [id number] Medicare [place] Medicare Primary [id number] Self 2 [id number] Fed Plan Medigap Part B [id number] Self [id number] Medicare [place] Medicare Primary [id number] Self 2 [id number] Medicare [place] Medicare Primary [id number] Self 5 [id number] Medicare [place] Medicare Primary [id number] Self 5 [id number] Medicare [place] Medicare Primary [id number] Self 5 [id number] Medicare [place] Medicare Primary [id number] Self 5 [id number] Medicare [place] Medicare Primary [id number] Self 5 [id number] BS Fed Plan Medigap Part B [id number] Self Medicare [place] Medicare Primary [id number] Self ANSI-Medicare Part B [id number] ANSI-Medicare Part B [id number] MEDICARE [id number] S [id number] A MCRB [id number] S [id number] A MEDICARE C [id number] S [id number] Medicare Dme Supplies Medigap Part B [id number] Self 5 [id number] BC/[place] OF [place] S [id number] S [id number] Medicare Part B [facility] Other 0 [id number] Self 0 [employer] [place] BCBS [id number] Medicare Dme Supplies Medigap Part B [id number] Self 5 [id number] A Medicare Dme Supplies Medigap Part B [id number] Self 5 [id number] BC BS [place] [facility] [id number] SP [id number] Medicare Dme Supplies Medigap Part B [id number] Self 5 [id number] BS [employer] [id number] SP [id number] Medicare Dme Supplies Medigap Part B [id number] Self 5 [id number] BCBS of [facility] Other 0 [id number] Self 0 [employer]CELL[place] BCBS S [id number] S [id number] MCRB [id number] S [id number] A Medicare Part B of [facility] Other 0 [id number] Self 0 [place]ICARE [place] MCR [id number] S [id number] BCBS of [facility] Other 0 [id number] Self 0 MEDICARE C [id number] S [id number] A MEDICARE [id number] S [id number] Medicare Dme Supplies Medigap Part B [id number] Self 5 [id number] Medicare Part B of [facility] Other 0 [id number] Self 0 BCBS of [facility] Other 0 [id number] Self 0 Medicare Dme Supplies Medigap Part B [id number] Self 5 [id number] BS [employer] [id number] SP [id number] MCRB [id number] S [id number] [id number] BC BS [facility] [id number] S [id number] ANSI-Commercial [id number] Problems, Conditions, and Diagnoses Code Display Name Description Problem Type Effective Dates Data Source(s) M15.9 Polyosteoarthritis, unspecified POLYOSTEOARTHRITIS, UN SPECIFIED Diagnosis 01/16/2021 09:11:00 AM [facility] R73.09 Other abnormal glucose OTHER ABNORMAL GLUCOSE Diagnosi s 01/16/2021 09:11:00 AM [facility] E78.00 PURE HYPERCHOLESTEROLEMIA, UNSPECIFIED P URE HYPERCHOLESTEROLEMIA, UNSPECIFIED Diagnosis 01/16/2021 09:11:00 AM [facility] I10 Essential (primary) hypertension ESSENTIAL (PRIMARY) H YPERTENSION Diagnosis 01/16/2021 09:11:00 AM [facility] G25.0 Essential tremor ESSENTIAL TREMOR Diagnosis 09/13/2020 09 :06:00 AM [facility] M19.90 Unspecified osteoarthritis, unspecified site UNSPECIFIED OSTEOARTHRITIS, UNSPECIFIED Diagnosis 09/13/2020 09:06:00 AM [facility] R42 Dizziness and giddiness DIZZINESS AND GIDDINESS Diagno sis 09/13/2020 09:06:00 AM [facility] R94.31 Electrocardiogram abnormal Electrocardiogram abnormal Problem 10/26/2020 12:00:00 AM [facility] R55 Syncope and collapse Syncope and collapse Problem 10/26/2020 12:00:00 AM EDT [facility] 379.21 Vitreous Disorders Degeneration Vitreous Disorders Deg eneration Problem 03/31/2020 12:00:00 AM EST [facility] (Fely Zamudio MD [facility]) 379.21 Vitreous Disorders Degeneration Vitreous Disorders Deg eneration Problem 03/31/2020 12:00:00 AM EST [facility] (Fely Zamudio MD [facility]) 379.21 Vitreous Disorders Degeneration Vitreous Disorders Deg eneration Problem 03/31/2020 12:00:00 AM EST [facility] (Fely Zamudio MD [facility]) [id number] Posterior Capsule Opacification Eccentri c Capsule Left Eye Posterior Capsule Opacification Eccentric Capsule Left Eye Problem 02/24 12:00:00 AM EDT - 03/31/2020 12:00:00 AM EST [facility] (Fely Zamudio MD [facility]) [id number] Posterior Capsule Opacification Eccentri c Capsule Left Eye Posterior Capsule Opacification Eccentric Capsule Left Eye Problem 02/24 12:00:00 AM EDT - 03/31/2020 12:00:00 AM EST [facility] (Fely Zamudio MD [facility]) [id number] Posterior Capsule Opacification Eccentri c Capsule Left Eye Posterior Capsule Opacification Eccentric Capsule Left Eye Problem 02/24 12:00:00 AM EDT - 03/31/2020 12:00:00 AM [facility] (Fely Zamudio MD [facility]) Surgeries/Procedures Procedure Description Date Indications Data Source(s) Implantable Loop Recorder System, Review And Report 02/21/2021 12:00:00 AM EDT [facility] ([facility]) ASPIRATION&/INJECTION GANGLION CYST ANY LOCATION 01/25 12:00:00 AM EDT [facility] ([facility]) RADEX FINGR MINIMUM 2 VIEWS 01/25/2021 12:00:00 AM EDT [facility] ([facility]) RADIOLOGIC EXAMINATION KNEE 3 VIEWS 01/25/2021 12:00:0 0 AM EDT [facility] ([facility]) OFFICE OUTPATIENT VISIT 25 MINUTES 01/25/2021 12:00:00 AM EDT [facility] ([facility]) RADIOLOGIC EXAMINATION KNEE 3 VIEWS 01/25/2021 12:00:0 0 AM EDT [facility] ([facility]) OFFICE OUTPATIENT NEW 45 MINUTES 01/24/2021 12:00:00 A M EDT [facility] ([facility]) Implantable Loop Recorder System, Review And Report 01/18/2021 12:00:00 AM EDT [facility] ([facility]) ECHO TTHRC R-T 2D W/WOM-MODE COMPL SPEC&COLR DOP 01/11 12:00:00 AM EDT [facility] ([facility]) OFFICE OUTPATIENT VISIT 25 MINUTES 12/21/2020 12:00:00 AM EDT [facility] ([facility]) OFFICE OUTPATIENT VISIT 5 MINUTES 12/19/2020 12:00:00 AM EDT [facility] ([facility]) OFFICE OUTPATIENT VISIT 15 MINUTES 12/05/2020 12:00:00 AM EDT [facility] ([facility]) Chronic Care MGMT 20 Mins Clinical Staff Time Per Calendar M onth 11/23/2020 12:00:00 AM EDT [facility] ([facility] ) ECG ROUTINE ECG W/LEAST 12 LDS W/I&R 10/26/2020 12:00: 00 AM EDT [facility] ([facility]) OFFICE OUTPATIENT NEW 45 MINUTES 10/26/2020 12:00:00 A M EDT [facility] ([facility]) Surgical / procedural history Tonsils-1 948, Hysterectomy-1977, Gall Bladder- 1977, Bladder Suspended-1995, Knee Replacement x2- Surgical / procedural history Tonsils-1948, Hysterectomy-1977, Gall Bladder-1977, Bladder Suspended-1995, Knee Replacement x2-10/18/2020 12:00:00 AM EDT [facility] (Fely Zamudio MD [facility]) Chronic Care MGMT 20 Mins Clinical Staff Time Per Calendar M onth 09/28/2020 12:00:00 AM EDT [facility] ([facility] ) OFFICE OUTPATIENT VISIT 25 MINUTES 09/27/2020 12:00:00 AM EDT [facility] ([facility]) XTRNL PT ACTIVATED ECG RECORD MONITOR 30 DAYS 06/30/19 12:00:00 AM EST [facility] ([facility]) XTRNL PT ACTIVTD ECG DWNLD 30 DAYS PHYS R&I 06/30/2020 12:00:00 AM EST [facility] ([facility]) ECG ROUTINE ECG W/LEAST 12 LDS W/I&R 06/07/2020 12:00: 00 AM EST [facility] ([facility]) Intermediate Eye Exam Established Patient Intermediate Eye Exam Established Patient 05/12/2020 12:00:00 AM EST [facility] (Jose L Zamudio MD [facility]) Intermediate Eye Exam Established Patient Intermediate Eye Exam Established Patient 05/12/2020 12:00:00 AM EST [facility] (Jose L Zamudio MD [facility]) Cataract surgery (procedure) History of cataract surge ry OU [address] 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 Mcgraw 03/06/19 03/31/2020 12:00:00 AM EST [facility] (Jose L Zamudio MD [facility]) Comprehensive eye exam established patient Comprehensi ve eye exam established patient 03/31/2020 12:00:00 AM EST [facility] (Jose L Zamudio MD [facility]) Surgical / procedural history Tonsils-1 948, Hystorectomy-1977, Gall Bladder- 1977, Bladder Suspended-1995, Knee Replacement x2- Surgical / procedural history Tonsils-1948, Hystorectomy-1977, Gall Bladder-1977, Bladder Suspended-1995, Knee Replacement x2-03/31/2020 12:00:00 AM EST [facility] (Fely Zamudio MD [facility]) Comprehensive eye exam established patient Comprehensi ve eye exam established patient 03/31/2020 12:00:00 AM EST [facility] (Jose L Zamudio MD [facility]) Results ID Date Data Source [id number] 03/17/2021 10:20:00 AM EDT [facility] ([facility]) Name Value Range Interpretation Code Description Data Sherley rce(s) Supporting Document(s) Coronavirus 2019 Nasopharygeal Laboratory test result [email or web address] ASSAY INFORMATION: Real Time RT-PCR or T MA. Both RT-PCR and TMA are nucleic acid amplification tests (NAAT) which are molecular testing modalities and recommended by the CDC for passenger travel. Testing and International Air Travel, cdc.gov/coronavirus/2019-ncov/travelers/qljxgjh-lcj-vmqnwq.html 07/14/2020 NOTE: The COVID-19 assay is under Emergency Use Authorization (EUA) by the U.S. Food and Drug Administration. [employer] and [facility] are designated as high complexity laboratories by the Clinical Laboratory Improvement Amendments of 1988 (CLIA) and are qualified to perform this test. Not Detected ID Date Data Source [id number] 01/16/2021 09:34:00 AM EDT [facility] ([facility]) Name Value Range Interpretation Code Description Data Sherley rce(s) Supporting Document(s) C Reactive Protein 2.9 mg/L 0.0-3.0 [facility] ([facility]) ID Date Data Source [id number] 01/16/2021 09:34:00 AM EDT [facility] ([facility]) Name Value Range Interpretation Code Description Data Sherley rce(s) Supporting Document(s) Ucol Laboratory test result [facility] ([facility]) Uapp Laboratory test result [facility] ([facility]) Ugl Laboratory test result [facility] ([facility]) Ubil Laboratory test result [facility] ([facility]) Uket Laboratory test result [facility] ([facility]) Ubl Laboratory test result [facility] ([facility]) Sgu Laboratory test result 1.005-1.030 [facility] T ([facility]) Rocael 5.5 5.0-9.0 [facility] Upro Laboratory test result [facility] ([facility]) Uuro Laboratory test result 0-1 [facility] ([facility]) Unit Laboratory test result [facility] ([facility]) Ule Laboratory test result [facility] ([facility]) ID Date Data Source [id number] 01/16/2021 09:34:00 AM EDT [facility] ([facility]) Name Value Range Interpretation Code Description Data Sherley rce(s) Supporting Document(s) Thyrotropin [Units/volume] in Serum or Plasma by Detec tion limit <= 0.05 mIU/L 2.263 uIU/mL 0.358-3.74 [facility] ([facility] ) FAX [phone] ID Date Data Source [id number] 01/16/2021 09:34:00 AM EDT [facility] ([facility]) Name Value Range Interpretation Code Description Data Sherley rce(s) Supporting Document(s) Trig 280 mg/dL 0-150 [facility] Chol 271 mg/dL 0-200 [facility] zzzLDL 155 mg/dL 0-100 [facility] HDL 60 mg/dL 40-60 [facility] CHDL 4.5 0.0-5.0 [facility]) ID Date Data Source [id number] 01/16/2021 09:34:00 AM EDT [facility] ([facility]) Name Value Range Interpretation Code Description Data Sherley rce(s) Supporting Document(s) Glu 105 mg/dL 74-106 [facility]) Na 143 mmol/L 136-145 [facility] K 4.7 mmol/L 3.5-5.1 [facility] Cre 0.95 mg/dL 0.6-1.0 [facility] BUN 15 mg/dL 7-18 [facility]) Co2 31 mmol/L 21-32 [facility]) CL 105 mmol/L 98-107 [facility] CA 9.1 mg/dL 8.5-10.1 [facility]) Gap 7.0 mmol/L 5-12 [facility] GFR 58 mL/min [facility]) <content>GFR IS CALCULATED IN mL/min/1.73m2</content>
<content></content>
<content>NORMAL FUNCTION: >90</content>
<content>MILDLY DECREASED: 60-89</content>
<content>MILDY TO MODERATELY DECREASED: 45-59</content>
<content>MODERATELY TO SEVERELY DECREASED: 30-44</content>
<content>SEVERELY DECREASED: 15- 29</content>
<content>RENAL FAILURE: <15</content>
<content></content> Ast 22 U/L 15-37 [facility]) Alt 32 U/L 12-78 [facility] Alk 76 U/L 46-116 [facility] Alb 3.6 gm/dL 3.4-5.0 [facility]) Tbili 1.4 mg/dL 0.2-1.0 [facility] TP 6.8 g/dL 6.4-8.2 [facility]) ID Date Data Source [id number] 01/16/2021 09:34:00 AM EDT [facility] ([facility]) Name Value Range Interpretation Code Description Data Sherley rce(s) Supporting Document(s) WBC 4.8 K/mm3 4.0-10.0 [facility]) RBC 4.62 M/mm3 4.00-5.50 [facility] HGB 13.7 gm/dL 12.0-16.0 [facility] HCT 41.4 % 36.0-48.8 [facility]) MCV 89.6 fl 80-96 [facility]) MCH 29.7 pg 27.0-31.0 [facility]) MCHC 33.1 g/dL 32.0-36.0 [facility]) RDW 13.9 % 10.0-14.5 [facility]) PLT 221 K/mm3 172-450 [facility]) Ig% 0.2 % 0.0-0.2 [facility]) GR% 59.6 % 50-80.0 [facility] MPV 9.7 fl 9.0-13.0 [facility] Mo% 10.5 % 2.0-10.0 [facility]) Ly% 26.6 % 25.0-50.0 [facility]) Eo% 2.1 % 0-5.0 [facility] Ig# 0.0 K/mm3 0.0-0.2 [facility]) GR# 2.8 K/mm3 2.0-8.00 [facility] Ba% 1.0 % 0.0-2.0 [facility] Eo# 0.1 K/mm3 0.0-0.5 [facility] Mo# 0.5 K/mm3 0.10-1.20 [facility] Ly# 1.3 K/mm3 1.0-5.0 [facility] Ba# 0.1 K/mm3 0.0-0.2 [facility]) ID Date Data Source [id number] 01/16/2021 10:48:00 AM EDT [facility] FAX [phone] Name Value Range Interpretation Code Description Data Sherley rce(s) Supporting Document(s) C REACTIVE PROTEIN 2.9 [facility]L 0.0-3.0 [facility] Data Source [id number] 01/16/2021 10:48:00 AM EDT [facility] FAX [phone] Name Value Range Interpretation Code Description Data Sherley rce(s) Supporting Document(s) GLUCOSE 105 mg/dL 74-106 [facility] BLOOD UREA NITROGEN 15 mg/dL 7-18 [facility] ital CREATININE 0.95 mg/dL 0.6-1.0 [facility] SODIUM 143 mmol/L 136-145 [facility] POTASSIUM 4.7 mmol/L 3.5-5.1 [facility] CHLORIDE 105 mmol/L 98-107 [facility] CO2 31 mmol/L 21-32 [facility] CALCIUM 9.1 mg/dL 8.5-10.1 [facility] ANION GAP 7.0 mmol/L 5-12 [facility] GLOMERULAR FILTRATION RATE 58 mL/min [facility] GFR IS CALCULATED IN mL/min/1.73m2 CINDI L FUNCTION: >90MILDLY DECREASED: 60-89MILDY TO MODERATELY DECREASED: 45-59 MODERATELY TO SEVERELY DECREASED: 30-44SEVERELY DECREASED: 15-29RENAL FAILURE: <15 AST 22 U/L 15-37 [facility] ALT 32 U/L 12-78 [facility] ALKALINE PHOSPHATASE 76 U/L 46-116 [facility] TOTAL BILIRUBIN 1.4 mg/dL 0.2-1.0 H [facility] TOTAL PROTEIN 6.8 g/dl 6.4-8.2 [facility] ALBUMIN 3.6 gm/dL 3.4-5.0 [facility] ID Date Data Source [id number] 01/16/2021 10:48:00 AM EDT [facility] FAX [phone] Name Value Range Interpretation Code Description Data Sherley rce(s) Supporting Document(s) CHOLESTEROL 271 mg/dL 0-200 [facility] TRIGLYCERIDES 280 mg/dL 0-150 [facility] LDL CHOLESTEROL 155 mg/dL 0-100 [facility] HDL CHOLESTEROL 60 mg/dL 40-60 [facility] CHOL/HDL RATIO 4.5 0.0-5.0 [facility] ID Date Data Source [id number] 01/16/2021 10:31:00 AM EDT [facility] FAX [phone] Name Value Range Interpretation Code Description Data Sherley rce(s) Supporting Document(s) TSH 2.263 uIU/mL 0.358-3.74 [facility] ID Date Data Source [id number] 01/16/2021 10:22:00 AM EDT [facility] FAX [phone] Name Value Range Interpretation Code Description Data Sherley rce(s) Supporting Document(s) URINE COLOR. [facility] URINE APPEARANCE CLEAR [facility] URINE GLUCOSE (UA) NEGATIVE mg/dL NEGATIVE [facility] URINE BILIRUBIN NEGATIVE NEGATIVE [facility] URINE KETONE NEGATIVE mg/dL NEGATIVE [facility] SPECIFIC GRAVITY,URINE >= 1.030 1.005-1.030 [facility] URINE BLOOD NEGATIVE NEGATIVE [facility] PH,URINE 5.5 5.0-9.0 [facility] URINE PROTEIN NEGATIVE mg/dL NEGATIVE [facility] URINE UROBILINOGEN NORMAL(0.2-1) mg/dL 0-1 [facility] URINE NITRATE NEGATIVE NEGATIVE [facility] URINE LEUKOCYTE ESTERASE NEGATIVE NEGATIVE [facility] ID Date Data Source [id number] 01/16/2021 10:02:00 AM EDT [facility] FAX [phone] Name Value Range Interpretation Code Description Data Sherley rce(s) Supporting Document(s) WHITE BLOOD COUNT 4.8 K/mm3 4.0-10.0 [facility] al RED BLOOD COUNT 4.62 M/mm3 4.00-5.50 [facility] HEMOGLOBIN 13.7 gm/dL 12.0-16.0 [facility] HEMATOCRIT 41.4 % 36.0-48.8 [facility] MEAN CELL VOLUME 89.6 fl 80-96 [facility] MEAN CORPUSCULAR HEMOGLOBIN 29.7 pg 27.0-31.0 [facility] MEAN CORPUSCULAR HGB CONC 33.1 g/dl 32.0-36.0 [facility] RED CELL DISTRIBUTION WIDTH 13.9 % 10.0-14.5 [facility] PLATELET COUNT 221 K/mm3 172-450 [facility] MEAN PLATELET VOLUME 9.7 fl 9.0-13.0 [facility] pital GRAN % 59.6 % 50-80.0 [facility] IG% 0.2 % 0.0-0.2 [facility] LYMPH % 26.6 % 25.0-50.0 [facility] MONO % 10.5 % 2.0-10.0 [facility] EOS % 2.1 % 0-5.0 [facility] BASO % 1.0 % 0.0-2.0 [facility] GRAN # 2.8 K/mm3 2.0-8.00 [facility] IG# 0.0 K/mm3 0.0-0.2 [facility] LYMPH # 1.3 K/mm3 1.0-5.0 [facility] MONO # 0.5 K/mm3 0.10-1.20 [facility] EOS # 0.1 K/mm3 0.0-0.5 [facility] BASO # 0.1 K/mm3 0.0-0.2 [facility] ID Date Data Source [id number] 09/13/2020 09:50:00 AM EDT [facility] ([facility]) Name Value Range Interpretation Code Description Data Sherley rce(s) Supporting Document(s) C-Reactive Protein 4.1 [facility]) ID Date Data Source [id number] 09/13/2020 09:50:00 AM EDT [facility] Name Value Range Interpretation Code Description Data Sherley rce(s) Supporting Document(s) Cholesterol 254 [facility] ([facility]) Triglycerides 188 [facility] ([facility]) Cholesterol in LDL [Mass/volume] in Serum or Plasma by calculation 14 8 [facility] ([facility]) HDL 68 [facility] Chol/HDL Ratio 3.7 [facility] ([facility]) ID Date Data Source [id number] 09/13/2020 09:50:00 AM EDT [facility] Name Value Range Interpretation Code Description Data Sherley rce(s) Supporting Document(s) Glucose 109 [facility] ([facility]) Creatinine 0.87 [facility] ([facility]) Sodium 143 [facility] ([facility]) Blood Urea Nitrogen 18 [facility] (Ca rdiology [facility]) Carbon Dioxide 30 [facility] ([facility]) Potassium 5.0 [facility] ([facility]) Chloride 105 [facility] Calcium 9.5 [facility] ([facility]) Glomerular filtration rate/1.73 sq M.pre dicted [Volume Rate/Area] in Serum or Plasma by Creatinine-based formula (MDRD) 64 [facility] ([facility]) ID Date Data Source [id number] 09/13/2020 09:10:00 AM EDT [facility] ([facility]) Name Value Range Interpretation Code Description Data Sherley rce(s) Supporting Document(s) C Reactive Protein 4.1 mg/L 0.0-3.0 [facility] ([facility]) ID Date Data Source [id number] 09/13/2020 09:10:00 AM EDT [facility] ([facility]) Name Value Range Interpretation Code Description Data Sherley rce(s) Supporting Document(s) Chol 254 mg/dL 0-200 [facility] Trig 188 mg/dL 0-150 [facility] CHDL 3.7 0.0-5.0 [facility] HDL 68 mg/dL 40-60 [facility] zzzLDL 148 mg/dL 0-100 [facility] ID Date Data Source [id number] 09/13/2020 09:10:00 AM EDT [facility] ([facility]) Name Value Range Interpretation Code Description Data Sherley rce(s) Supporting Document(s) Glu 109 mg/dL 74-106 [facility] BUN 18 mg/dL 7-18 [facility] Cre 0.87 mg/dL 0.6-1.0 [facility] Na 143 mmol/L 136-145 [facility] Co2 30 mmol/L 21-32 [facility] K 5.0 mmol/L 3.5-5.1 [facility] CL 105 mmol/L 98-107 [facility] Gap 8.0 mmol/L 5-12 [facility] CA 9.5 mg/dL 8.5-10.1 [facility] GFR 64 mL/min [facility]) <content>GFR IS CALCULATED IN mL/min/1.73m2</content>
<content></content>
<content>NORMAL FUNCTION: >90</content>
<content>MILDLY DECREASED: 60-89</content>
<content>MILDY TO MODERATELY DECREASED: 45-59</content>
<content>MODERATELY TO SEVERELY DECREASED: 30-44</content>
<content>SEVERELY DECREASED: 15- 29</content>
<content>RENAL FAILURE: <15</content>
<content></content> ID Date Data Source [id number] 09/13/2020 10:01:00 AM EDT [facility] FAX [phone] Name Value Range Interpretation Code Description Data Sherley rce(s) Supporting Document(s) C REACTIVE PROTEIN 4.1 mg/L 0.0-3.0 [facility] ID Date Data Source [id number] 09/13/2020 10:01:00 AM EDT [facility] FAX [phone] Name Value Range Interpretation Code Description Data Sherley rce(s) Supporting Document(s) CHOLESTEROL 254 mg/dL 0-200 [facility] TRIGLYCERIDES 188 mg/dL 0-150 [facility] LDL CHOLESTEROL 148 mg/dL 0-100 [facility] HDL CHOLESTEROL 68 mg/dL 40-60 [facility] CHOL/HDL RATIO 3.7 0.0-5.0 [facility] ID Date Data Source [id number] 09/13/2020 10:01:00 AM EDT [facility] FAX [phone] Name Value Range Interpretation Code Description Data Sherley rce(s) Supporting Document(s) GLUCOSE 109 mg/dL 74-106 [facility] BLOOD UREA NITROGEN 18 mg/dL 7-18 [facility] ital CREATININE 0.87 mg/dL 0.6-1.0 [facility] SODIUM 143 mmol/L 136-145 [facility] POTASSIUM 5.0 mmol/L 3.5-5.1 [facility] CHLORIDE 105 mmol/L 98-107 [facility] CO2 30 mmol/L 21-32 [facility] CALCIUM 9.5 mg/dL 8.5-10.1 [facility] ANION GAP 8.0 mmol/L 5-12 [facility] GLOMERULAR FILTRATION RATE 64 mL/min [facility] GFR IS CALCULATED IN mL/min/1.73m2 CINDI L FUNCTION: >90MILDLY DECREASED: 60-89MILDY TO MODERATELY DECREASED: 45-59 MODERATELY TO SEVERELY DECREASED: 30-44SEVERELY DECREASED: 15-29RENAL FAILURE: <15 ID Date Data Source [id number] 05/31/2020 08:06:00 AM EST [facility] ([facility]) Name Value Range Interpretation Code Description Data Sherley rce(s) Supporting Document(s) C Reactive Protein 4.8 mg/L 0.0-3.0 [facility] ([facility]) ID Date Data Source [id number] 05/31/2020 08:06:00 AM EST [facility] ([facility]) Name Value Range Interpretation Code Description Data Sherley rce(s) Supporting Document(s) Laboratory test finding (navigational concept) 5.7 % 3.8-5.6 [facility] ([facility]) <content>Diabetic > or = to 6.5%</conten t>
<content>Prediabetes 5.7- 6.4%</content>
<content>Normal <5.7</content>
<content></content> Laboratory test finding (navigational concept) 116.9 mg/dL [facility] ([facility]) ID Date Data Source [id number] 05/31/2020 08:06:00 AM EST [facility] ([facility]) Name Value Range Interpretation Code Description Data Sherley rce(s) Supporting Document(s) Chol 252 mg/dL 0-200 [facility] zzzLDL 139 mg/dL 0-100 [facility] Trig 228 mg/dL 0-150 [facility] HDL 67 mg/dL 40-60 [facility] CHDL 3.8 0.0-5.0 [facility] ID Date Data Source [id number] 05/31/2020 08:06:00 AM EST [facility] ([facility]) Name Value Range Interpretation Code Description Data Sherley rce(s) Supporting Document(s) Glu 107 mg/dL 74-106 [facility] Cre 0.98 mg/dL 0.6-1.0 [facility] BUN 15 mg/dL 7-18 [facility] Na 142 mmol/L 136-145 [facility] K 4.4 mmol/L 3.5-5.1 [facility] CL 104 mmol/L 98-107 [facility] Co2 30 mmol/L 21-32 [facility] CA 9.2 mg/dL 8.5-10.1 [facility] Gap 8.0 mmol/L 5-12 [facility] GFR 55 mL/min [facility] <content>GFR IS CALCULATED IN mL/min/1.73m2</content>
<content></content>
<content>NORMAL FUNCTION: >90</content>
<content>MILDLY DECREASED: 60-89</content>
<content>MILDY TO MODERATELY DECREASED: 45-59</content>
<content>MODERATELY TO SEVERELY DECREASED: 30-44</content>
<content>SEVERELY DECREASED: 15- 29</content>
<content>RENAL FAILURE: <15</content>
<content></content> Alt 29 U/L 12-78 [facility] Alk 58 U/L 46-116 [facility] Ast 23 U/L 15-37 [facility] TP 6.8 g/dL 6.4-8.2 [facility] Tbili 1.4 mg/dL 0.2-1.0 [facility] Alb 3.6 gm/dL 3.4-5.0 [facility] ID Date Data Source [id number] 05/31/2020 08:06:00 AM EST [facility] ([facility]) Name Value Range Interpretation Code Description Data Sherley rce(s) Supporting Document(s) RBC 4.58 M/mm3 4.00-5.50 [facility] WBC 4.9 K/mm3 4.0-10.0 [facility] HCT 40.6 % 36.0-48.8 [facility] HGB 13.5 gm/dL 12.0-16.0 [facility] MCV 88.6 fl 80-96 [facility] MCHC 33.3 g/dL 32.0-36.0 [facility] MCH 29.5 pg 27.0-31.0 [facility] RDW 13.3 % 10.0-14.5 [facility] PLT 210 K/mm3 172-450 [facility] ID Date Data Source [id number] 05/31/2020 08:46:00 AM [facility] FACX [phone] Name Value Range Interpretation Code Description Data Sherley rce(s) Supporting Document(s) GLUCOSE 107 mg/dL 74-106 [facility] BLOOD UREA NITROGEN 15 mg/dL 7-18 [facility] ital CREATININE 0.98 mg/dL 0.6-1.0 [facility] SODIUM 142 mmol/L 136-145 [facility] POTASSIUM 4.4 mmol/L 3.5-5.1 [facility] CHLORIDE 104 mmol/L 98-107 [facility] CO2 30 mmol/L 21-32 [facility] CALCIUM 9.2 mg/dL 8.5-10.1 [facility] ANION GAP 8.0 mmol/L 5-12 [facility] GLOMERULAR FILTRATION RATE 55 mL/min [facility] GFR IS CALCULATED IN mL/min/1.73m2 CINDI L FUNCTION: >90MILDLY DECREASED: 60-89MILDY TO MODERATELY DECREASED: 45-59 MODERATELY TO SEVERELY DECREASED: 30-44SEVERELY DECREASED: 15-29RENAL FAILURE: <15 AST 23 U/L 15-37 [facility] ALT 29 U/L 12-78 [facility] ALKALINE PHOSPHATASE 58 U/L 46-116 [facility] pital TOTAL BILIRUBIN 1.4 mg/dL 0.2-1.0 [facility] TOTAL PROTEIN 6.8 g/dl 6.4-8.2 [facility] ALBUMIN 3.6 gm/dL 3.4-5.0 [facility] ID Date Data Source [id number] 05/31/2020 08:46:00 AM [facility] FACX [phone] Name Value Range Interpretation Code Description Data Sherley rce(s) Supporting Document(s) C REACTIVE PROTEIN 4.8 mg/L 0.0-3.0 [facility] Date Data Source [id number] 05/31/2020 08:46:00 AM [facility] FACX [phone] Name Value Range Interpretation Code Description Data Sherley rce(s) Supporting Document(s) CHOLESTEROL 252 mg/dL 0-200 [facility] TRIGLYCERIDES 228 mg/dL 0-150 [facility] LDL CHOLESTEROL 139 mg/dL 0-100 [facility] HDL CHOLESTEROL 67 mg/dL 40-60 [facility] CHOL/HDL RATIO 3.8 0.0-5.0 [facility] ID Date Data Source [id number] 05/31/2020 08:36:00 AM [facility] FACX [phone] Name Value Range Interpretation Code Description Data Sherley rce(s) Supporting Document(s) HGBA1C 5.7 % 3.8-5.6 [facility] Diabetic > or = to 6.5%Prediabetes 5.7-6 .4%Normal <5.7 ESTIMATED AVERAGE GLUCOSE 116.9 mg/dL [facility] ID Date Data Source [id number] 05/31/2020 08:18:00 AM [facility] l FACX [phone] Name Value Range Interpretation Code Description Data Sherley rce(s) Supporting Document(s) WHITE BLOOD COUNT 4.9 K/mm3 4.0-10.0 [facility] al RED BLOOD COUNT 4.58 M/mm3 4.00-5.50 [facility] HEMOGLOBIN 13.5 gm/dL 12.0-16.0 [facility] HEMATOCRIT 40.6 % 36.0-48.8 [facility] MEAN CELL VOLUME 88.6 fl 80-96 [facility] MEAN CORPUSCULAR HEMOGLOBIN 29.5 pg 27.0-31.0 [facility] MEAN CORPUSCULAR HGB CONC 33.3 g/dl 32.0-36.0 [facility] RED CELL DISTRIBUTION WIDTH 13.3 % 10.0-14.5 [facility] PLATELET COUNT 210 K/mm3 172-450 [facility] ID Date Data Source [id number] 03/30/2020 12:00:00 AM [facility] Debra Adams Vice Investigator Patient Name: SHERIN LEVINE [id number] Date of : 1945[id number] Date of Exam: 03/30/2020MORIS Low [id number]-QN#: Fax: [id number] EXAM: US HEAD AND NECK SOFT TISSUECLINICAL INFORMATION: Mass.Ultrasonography of the right side of the face superior and medial to thepatient's eyebrow where there is a clinically palpable mass.Ultrasonographic evaluation of the soft tissues, as described above, showno cystic or solid masses.A negative ultrasound examination does not obviate further imaging with MRIif a soft tissue mass is of clinical concern.Accredited by the [employer] in General Ultrasound.KAIT Garcia/Kera andujar for referring SHERIN LEVINE to our office. Electronically Signed - ANGEL SOFIA DO 03/31/20 13:52 Name Value Range Interpretation Code Description Data Sherley rce(s) Supporting Document(s) Procedure Social History Code Duration Value Status Description Data Source(s ) Smoking 12/19/2020 12:00:00 AM EDT Patient has never smoked co mpleted Patient has never smoked [facility] ([facility]) Smoking 10/18/2020 10:54:51 AM EDT Never smoked tobacco (findi ng) completed Never smoked tobacco (finding) JAIME (Fely Zamudio MD [facility]) Smoking 05/17/2020 12:55:37 PM EST Never smoked tobacco (findi ng) completed Never smoked tobacco (finding) JAIME (Fely Zamudio MD [facility]) Smoking 03/31/2020 01:49:19 PM EST Never smoked tobacco (findi ng) completed Never smoked tobacco (finding) JAIME (Fely Zamudio MD [facility]) Vital Signs ID Date Data Source [id number] Name Value Range Interpretation Code Description Data Source(s) Body height 64 [in_i] 64 [in_i] [facility] 5'4" Body weight 170.00 [lb_av] 170.00 [lb_av] MEDEN T ([facility]) Systolic blood pressure 122 mm[Hg] 122 mm[Hg] M EDENT ([facility]) Diastolic blood pressure 82 mm[Hg] 82 mm[Hg] [facility] ([facility]) Heart rate 72 /min 72 /min [facility] Body mass index (BMI) [Ratio] 29.2 kg/m2 29.2 k g/m2 [facility] ([facility]) Body weight 77.112 kg 77.112 kg [facility] ([facility]) Body temperature 97.7 [degF] 97.7 [degF] [facility] ([facility]) Systolic blood pressure 122 mm[Hg] 122 mm[Hg] M EDENT ([facility]) Diastolic blood pressure 76 mm[Hg] 76 mm[Hg] [facility] ([facility]) Respiratory rate 16 /min 16 /min [facility] ( [facility]) Heart rate 64 /min 64 /min [facility] ([facility]) Systolic blood pressure 122 mm[Hg] 122 mm[Hg] M EDENT ([facility]) Diastolic blood pressure 76 mm[Hg] 76 mm[Hg] [facility] ([facility]) Body height 63.25 [in_i] 63.25 [in_i] [facility] ( [facility]) 5'3.25" Systolic blood pressure 122 mm[Hg] 122 mm[Hg] M EDENT ([facility]) Diastolic blood pressure 70 mm[Hg] 70 mm[Hg] [facility] ([facility]) Heart rate 74 /min 74 /min [facility] ([facility]) Body weight 168.00 [lb_av] 168.00 [lb_av] MEDEN T ([facility]) Body mass index (BMI) [Ratio] 29.5 kg/m2 29.5 k g/m2 [facility] ([facility]) Heart rate 68 /min 68 /min [facility] ([facility]) Diastolic blood pressure--supine 85 mm[Hg] 85 mm[Hg] [facility] ([facility]) [place], large cuff/Ra; HR: 64 bpm Systolic blood pressure--standing 158 mm[Hg] 15 8 mm[Hg] [facility] ([facility]) [place], large cuff/Ra; HR: 67 bpm Diastolic blood pressure--standing 97 mm[Hg] 9 7 mm[Hg] [facility] ([facility]) [place], large cuff/Ra; HR: 67 bpm Systolic blood pressure--sitting 142 mm[Hg] 142 mm[Hg] [facility] ([facility]) [place], large cuff/Ra; HR: 68 bpm Diastolic blood pressure--sitting 97 mm[Hg] 97 mm[Hg] [facility] ([facility]) [place], large cuff/Ra; HR: 68 bpm Body weight 169.00 [lb_av] 169.00 [lb_av] MEDEN T ([facility]) Body height 64 [in_i] 64 [in_i] [facility] 5'4" Systolic blood pressure--supine 134 mm[Hg] 134 mm[Hg] [facility] ([facility]) [place], large cuff/Ra; HR: 64 bpm Body mass index (BMI) [Ratio] 29.0 kg/m2 29.0 k g/m2 [facility] ([facility]) Systolic blood pressure 136 mm[Hg] 136 mm[Hg] M EDENT ([facility]) RT Arm Diastolic blood pressure 86 mm[Hg] 86 mm[Hg] [facility] ([facility]) RT Arm Heart rate 76 /min 76 /min [facility] ([facility]) Body height 63.25 [in_i] 63.25 [in_i] [facility] ([facility]) 5'3.25" Body weight 169.00 [lb_av] 169.00 [lb_av] MEDEN T ([facility]) Body mass index (BMI) [Ratio] 29.7 kg/m2 29.7 k g/m2 [facility] ([facility]) Body height 63.25 [in_i] 63.25 [in_i] [facility] 5'3.25" Body weight 174.00 [lb_av] 174.00 [lb_av] MEDEN T ([facility]) Body mass index (BMI) [Ratio] 30.6 kg/m2 30.6 k g/m2 [facility] ([facility]) Systolic blood pressure 122 mm[Hg] 122 mm[Hg] M EDENT ([facility]) Diastolic blood pressure 78 mm[Hg] 78 mm[Hg] [facility] ([facility]) Heart rate 68 /min 68 /min [facility] ([facility]) Patient Treatment Plan of Care Planned Activity Planned Date Details Description Data Source (s) Eysuvis 0.25% Ophthalmic Suspension 05/17/2020 12:00:00 AM EST JAIME (Fely GRIFFIN) Cyclosporine 0.5 MG/ML Ophthalmic Suspension [Restasis ] 03/31/2020 12:00:00 AM EST JAIME (Fely GRIFFIN) loteprednol etabonate 0.005 MG/MG Ophthalmic Gel [Lote max] 03/06/2019 12:00:00 AM EDT JAIME (Fely GRIFFIN) prednisolone acetate 10 MG/ML Ophthalmic Suspension [P red Forte] 03/06/2019 12:00:00 AM EDT JAIME (Fely GRIFFIN) Cyclosporine 0.5 MG/ML Ophthalmic Suspension [Restasis ] 02/24/2019 12:00:00 AM EDT [facility]
[2021-03-22] MEDS ORDERED: LIDOCAINE 2% 100MG/5ML SDV (FOR ANES.) As Ordered ONE (10:00)
[2021-03-22] MEDS ORDERED: fentaNYL 100 MCG/2 ML INJECTION (J3010) As Ordered ONE (10:00)
[2021-03-22] MEDS ORDERED: propofoL 500 MG/50 ML VIAL As Ordered ONE (10:00)
--- NOTE | 2021-03-22 10:56 | ROOR ---
Patient Name: Radha Smith Procedure Date: 03/22/2021 10:35 AM Date of : 1945 Age: 75 Room: [facility] Gender: Female Note Status: Finalized Procedure: Upper Endoscopy + Biopsies Indications: Upper abdominal pain, Nausea Providers: Seth Mcgraw MD Referring MD: Melanie WOODWARD MD Requesting Provider: Medicines: Monitored Anesthesia Care Complications: No immediate complications. Procedure: Pre-Anesthesia Assessment: - The heart rate, respiratory rate, oxygen saturations, blood pressure, adequacy of pulmonary ventilation, and response to care were monitored throughout the procedure. The Endoscope was introduced through the mouth, and advanced to the second part of duodenum. The upper GI endoscopy was accomplished without difficulty. The patient tolerated the procedure well. Findings: The Z-line was regular and was found 30 cm from the incisors. Multiple biopsies were obtained with cold forceps for evaluation to rule out Patel's Esophagus randomly at the gastroesophageal junction. A small hiatal hernia was present. Multiple small pedunculated and sessile fundic gland polyps with no bleeding and no stigmata of recent bleeding were found on the greater curvature of the stomach. Biopsies were taken with a cold forceps for histology. Biopsies were taken with a cold forceps in the gastric antrum for Helicobacter pylori testing. The exam of the duodenum was otherwise normal. Impression: - Z-line regular, 30 cm from the incisors. - Small hiatal hernia. - Multiple fundic gland polyps. Biopsied. - Multiple biopsies were obtained at the gastroesophageal junction. - Biopsies were taken with a cold forceps for Helicobacter pylori testing. - The examination was otherwise normal. Recommendation: - Patient has a contact number available for emergencies. The signs and symptoms of potential delayed complications were discussed with the patient. Return to normal activities tomorrow. Written discharge instructions were provided to the patient. - High fiber diet. - Discharge patient to home. - Follow an antireflux regimen. - Continue present medications. - Await pathology results. - Telephone GI clinic for pathology results in 1 week. - Return to referring physician. - The findings and recommendations were discussed with the patient. Procedure Code(s): --- Professional --- 91333, Esophagogastroduodenoscopy, flexible, transoral; with biopsy, single or multiple Diagnosis Code(s): --- Professional --- K44.9, Diaphragmatic hernia without obstruction or gangrene K31.7, Polyp of stomach and duodenum R10.10, Upper abdominal pain, unspecified R11.0, Nausea CPT copyright 2019 [employer]. All rights reserved. The codes documented in this report are preliminary and upon community health specialist review may be revised to meet current compliance requirements. Seth Mcgraw MD Seth Mcgraw MD 03/22/2021 10:55:57 AM Electronically signed by Seth Mcgraw MD Number of Addenda: 0 Note Initiated On: 03/22/2021 10:35 AM Estimated Blood Loss: Estimated blood loss: none.
--- NOTE | 2021-03-22 11:10 | ROOR ---
Patient Name: Radha Smith Procedure Date: 03/22/2021 10:37 AM Date of : 1945 Age: 75 Room: [facility] Gender: Female Note Status: Finalized Procedure: Total Colonoscopy to Cecum Indications: Screening for colorectal malignant neoplasm Providers: Seth Mcgraw MD Referring MD: Melanie WOODWARD MD Requesting Provider: Medicines: Monitored Anesthesia Care Complications: No immediate complications. Procedure: Pre-Anesthesia Assessment: - The heart rate, respiratory rate, oxygen saturations, blood pressure, adequacy of pulmonary ventilation, and response to care were monitored throughout the procedure. The Colonoscope was introduced through the anus and advanced to the cecum, identified by appendiceal orifice and ileocecal valve. The colonoscopy was performed without difficulty. The patient tolerated the procedure well. The quality of the bowel preparation was excellent. Findings: The perianal and digital rectal examinations were normal. Non-bleeding internal hemorrhoids were found during retroflexion. The hemorrhoids were small and Grade I (internal hemorrhoids that do not prolapse). Scattered small-mouthed diverticula were found in the recto-sigmoid colon, sigmoid colon and descending colon. The exam was otherwise without abnormality on direct and retroflexion views. Impression: - Non-bleeding internal hemorrhoids. - Diverticulosis in the recto-sigmoid colon, in the sigmoid colon and in the descending colon. - The examination was otherwise normal on direct and retroflexion views. - No specimens collected. - The exam was otherwise normal to the cecum. Recommendation: - Patient has a contact number available for emergencies. The signs and symptoms of potential delayed complications were discussed with the patient. Return to normal activities tomorrow. Written discharge instructions were provided to the patient. - High fiber diet. - Discharge patient to home. - Continue present medications. - Repeat colonoscopy PRN for screening purposes. - Return to referring physician. - The findings and recommendations were discussed with the patient. Procedure Code(s): --- Professional --- 13428, Colonoscopy, flexible; diagnostic, including collection of specimen(s) by brushing or washing, when performed (separate procedure) Diagnosis Code(s): --- Professional --- Z12.11, Encounter for screening for malignant neoplasm of colon K64.0, First degree hemorrhoids K57.30, Diverticulosis of large intestine without perforation or abscess without bleeding CPT copyright 2019 [employer]. All rights reserved. The codes documented in this report are preliminary and upon sustainability project manager review may be revised to meet current compliance requirements. Seth Mcgraw MD Seth Mcgraw MD 03/22/2021 11:09:55 AM Electronically signed by Seth Mcgraw MD Number of Addenda: 0 Note Initiated On: 03/22/2021 10:37 AM Estimated Blood Loss: Estimated blood loss: none.
[2021-03-22 11:30] VITALS: BP 131/68
== END 2021-03-22 11:50 | disposition home or self-care (01) ==
LOC: M OPP 09:19
PROVIDERS: ATTEND Internal Medicine Gastroenterology
DX: Z12.11 Encounter for screening for malignant neoplasm of colon (principal); Z80.0 Family history of malignant neoplasm of digestive organs; K57.30 Diverticulosis of large intestine without perforation or abscess without bleeding; K64.0 First degree hemorrhoids; K44.9 Diaphragmatic hernia without obstruction or gangrene; K31.7 Polyp of stomach and duodenum; R10.10 Upper abdominal pain, unspecified; R11.0 Nausea; Z79.899 Other long term (current) drug therapy; Z88.8 Allergy status to other drugs, medicaments and biological substances; Z95.818 Presence of other cardiac implants and grafts
CPT/HCPCS: 43239; 88305; G0121; J3010